=== PATIENT | male | born 1940 | race Caucasian/White ===

== ENCOUNTER 2016-06-27 06:35 | Inpatient (IN) | payer OTHER, MEDICARE ==
[~2016-06-27] VITALS: Ht 170.2 cm; Wt 78.7 kg
[2016-06-27] VITALS (10 sets, daily range): BP systolic 135–164; BP diastolic 63–80; PULSE 68–93; RESP 17–20; TEMP 97.7–98.7; O2SAT 95–100
[~2016-06-27 06:35] MED LIST: BACT800T5 PO; CENTTAB9 PO; CLOP75 PO; HYZA100T6 PO; LIPI40TA PO; MUPI2%T TOP; RANI150T PO; TOPR50TA PO; VITA-13 PO; Z.0.WALKERFRONT
[2016-06-27] MEDS ORDERED: RANI150T PO (06:58)
[2016-06-27] MEDS ORDERED: PLAV75TA29 PO (06:58)
[2016-06-27] MEDS ORDERED: METO50TA PO (06:58)
[2016-06-27] MEDS ORDERED: LIPI40TA PO (06:58)
[2016-06-27] MEDS ORDERED: APIX5TAB PO (06:58)
[2016-06-27] MEDS ORDERED: LOSA25TA PO (06:58)
--- NOTE | 2016-06-27 07:08 | PD ---
HPI Chief Complaint: Abdominal Pain Time Seen by Provider: 07:01 Travel History International Travel<30 days: No Contact w/Intl Traveler<30days: No Traveled to known affect area: No History of Present Illness HPI 75-year-old male complains of abdominal pain. Patient states that he has intermittent abdominal cramping for the past week. Patient states the pain across the mid abdomen. Patient denies any pain radiation. Patient denies nausea vomiting diarrhea. Patient denies dysuria or frequency. Patient denies any fever chills. Patient has history of CAD status post stent placement. Patient states that he has history of atrial flutter/atrial fibrillation. Patient has a list of medication and he is on both Plavix and Eliquis. 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 Patient is scheduled to have electrophysiologic study by Dr. Urban tomorrow. Patient was advised to stop Eliquis today. Patient has history hypertension and dyslipidemia. Patient denies history of diabetes. PFSH Past Medical History Hx Anticoagulant Therapy: Yes Heart Rhythm Problems: Yes Cancer: No Cardiac Catheterization: Yes (FEB 2007) Cardiovascular Problems: Yes High Cholesterol: Yes Coronary Artery Disease: Yes Diabetes: No Diminished Hearing: No Endocrine: No Genitourinary: No Hepatitis: No Hiatal Hernia: No Hypertension: Yes Immune Disorder: No Musculoskeletal: Yes (ARTHRITIS) Neurologic: No Psychiatric: No Respiratory: Yes (COPD) Immunizations Current: Yes Migraines: No Seizures: No Thyroid Disease: No Tetanus Vaccination: < 5 Years Influenza Vaccination: Yes Past Surgical History AICD: No Body Medical Devices: CARDIAC STENTS Joint Replacement: Yes (LEFT KNEE) Oral Surgery: Yes (DENTAL EXTRACT., T & A) Pacemaker: No Other Surgery: Yes Social History Alcohol Use: Yes (OCCAISIONAL BEER ONCE A WEEK) Tobacco Use: No Substance Use: No Allergies-Medications (Allergen,Severity, Reaction): Coded Allergies: No Known Allergies (Verified , 06/27/16) Reported Meds & Prescriptions Reported Meds & Active Scripts Active Reported Eliquis (Apixaban) 5 Mg Tab 5 Mg PO BID Ranitidine (Ranitidine HCl) 150 Mg Tab 150 Mg PO BID Metoprolol Tartrate 50 Mg Tab 50 Mg PO BID Losartan (Losartan Potassium) 25 Mg Tab 12.5 Mg PO DAILY Plavix (Clopidogrel Bisulfate) 75 Mg Tab 0.5 Tab PO DAILY Lipitor (Atorvastatin Calcium) 40 Mg Tab 40 Mg PO HS Review of Systems General / Constitutional: No: Fever Eyes: No: Visual changes HENT: No: Headaches Cardiovascular: No: Chest Pain or Discomfort Respiratory: No: Shortness of Breath Gastrointestinal: Positive: Abdominal Pain Genitourinary: No: Dysuria Musculoskeletal: No: Pain Skin: No Rash Neurologic: No: Weakness Psychiatric: No: Depression Endocrine: No: Polydipsia Hematologic/Lymphatic: No: Easy Bruising Physical Exam Narrative GENERAL: Well-nourished, well-developed patient. SKIN: Warm and dry. HEAD: Normocephalic. EYES: No scleral icterus. No injection or drainage. NECK: Supple, trachea midline. No JVD or lymphadenopathy. CARDIOVASCULAR: Regular rate and rhythm without murmurs, gallops, or rubs. RESPIRATORY: Breath sounds equal bilaterally. No accessory muscle use. GASTROINTESTINAL: Abdomen soft, nondistended. Patient has mild to moderate tenderness and palpation right upper quadrant of the abdomen. No rebound tenderness. No mass. MUSCULOSKELETAL: No cyanosis, or edema. BACK: Nontender without obvious deformity. No CVA tenderness. Neurologic exam normal. Data Data Last Documented VS Vital Signs Date Time Temp Pulse Resp B/P Pulse Ox O2 Delivery O2 Flow Rate FiO2 06/27/16 07:17 96 Room Air 06/27/16 06:47 18 06/27/16 06:44 98.7 83 161/80 Orders Complete Blood Count With Diff (06/27/16 07:01) Comprehensive Metabolic Panel (06/27/16 07:01) Lipase (06/27/16 07:01) Prothrombin Time / Inr (Pt) (06/27/16 07:01) Act Partial Throm Time (Ptt) (06/27/16 07:01) Urinalysis - C+S If Indicated (06/27/16 07:01) Ct Abd/Pel W Iv Contrast(Rout) (06/27/16 07:01) Iv Access Insert/Monitor (06/27/16 07:01) Ecg Monitoring (06/27/16 07:01) Oximetry (06/27/16 07:01) Pantoprazole Inj (Protonix Inj) (06/27/16 07:15) Electrocardiogram (06/27/16 07:01) Iohexol 350 Inj (Omnipaque 350 Inj) (06/27/16 08:31) Labs Laboratory Tests Test 06/27/16 06/27/16 07:15 08:45 White Blood Count 16.5 TH/MM3 Red Blood Count 5.17 MIL/MM3 Hemoglobin 15.3 GM/DL Hematocrit 45.4 % Mean Corpuscular Volume 87.8 FL Mean Corpuscular Hemoglobin 29.7 PG Mean Corpuscular Hemoglobin 33.8 % Concent Red Cell Distribution Width 13.2 % Platelet Count 275 TH/MM3 Mean Platelet Volume 7.8 FL Neutrophils (%) (Auto) 85.6 % Lymphocytes (%) (Auto) 7.4 % Monocytes (%) (Auto) 6.2 % Eosinophils (%) (Auto) 0.3 % Basophils (%) (Auto) 0.5 % Neutrophils # (Auto) 14.2 TH/MM3 Lymphocytes # (Auto) 1.2 TH/MM3 Monocytes # (Auto) 1.0 TH/MM3 Eosinophils # (Auto) 0.0 TH/MM3 Basophils # (Auto) 0.1 TH/MM3 CBC Comment DIFF FINAL Differential Comment Prothrombin Time 11.0 SEC Prothromb Time International 1.0 RATIO Ratio Activated Partial 27.2 SEC Thromboplast Time Sodium Level 142 MEQ/L Potassium Level 4.1 MEQ/L Chloride Level 104 MEQ/L Carbon Dioxide Level 29.4 MEQ/L Anion Gap 9 MEQ/L Blood Urea Nitrogen 19 MG/DL Creatinine 1.20 MG/DL Estimat Glomerular Filtration 59 ML/MIN Rate Random Glucose 152 MG/DL Calcium Level 9.7 MG/DL Total Bilirubin 1.2 MG/DL Aspartate Amino Transf 14 U/L (AST/SGOT) Alanine Aminotransferase 21 U/L (ALT/SGPT) Alkaline Phosphatase 82 U/L Total Protein 7.9 GM/DL Albumin 3.4 GM/DL Lipase 193 U/L Urine Collection Type CLEAN CATCH Urine Color YELLOW Urine Turbidity CLEAR Urine pH 6.0 Urine Specific [place] 1.019 Urine Protein NEG mg/dL Urine Glucose (UA) NEG mg/dL Urine Ketones NEG mg/dL Urine Occult Blood NEG Urine Nitrite NEG Urine Bilirubin NEG Urine Leukocyte Esterase NEG Urine Squamous Epithelial 0-5 /hpf Cells Microscopic Urinalysis Comment CULT NOT INDICATED Urine Collection Time 0845 [facility] Medical Decision Making Medical Screen Exam Complete: Yes Emergency Medical Condition: Yes Interpretation(s) Last Impressions Abdomen/Pelvis CT 06/27/16 0701 Signed Impressions: Service Date/Time: Monday, June 27, 2016 08:07 - CONCLUSION: 1. Hepatic steatosis with areas of focal fatty sparing. 2. Cholelithiasis. 3. Left-sided renal cyst. 4. Small right pleural effusion. Walter Jimenez MD 9:06 AM. CBC WBC 16.5. 85 neutrophil. BUN 19. Total bili 1.2. UA is negative. Differential Diagnosis Differential diagnosis including gastritis, PUD, pancreatitis, cholecystitis, colitis, UTI, pyelonephritis, nephrolithiasis. Narrative Course 75-year-old male with right upper quadrant abdominal pain and mid abdominal pain. Diagnosis Primary Impression: Acute cholecystitis Additional Impression: Cholelithiasis Qualified Code: K80.00 - Calculus of gallbladder with acute cholecystitis without obstruction Sree Kathleen MD Jun 27, 2016 07:08
[2016-06-27] MEDS ORDERED: PANTOPRAZOLE SODIUM 40 MG VIAL IVP ONE (07:15)
[2016-06-27 07:32] LABS: AUTOMATED NEUTROPHIL # 14.2 TH/MM3 (1.8-7.7); BASOPHIL # 0.1 TH/MM3 (0-0.2); BASOPHIL % 0.5 % (0.0-2.0); EOSINOPHIL % 0.3 % (0.0-4.0); HEMATOCRIT 45.4 % (39.0-51.0); LYMPH % 7.4 % (9.0-44.0); LYMPHOCYTE # 1.2 TH/MM3 (1.0-4.8); MEAN CELL VOLUME 87.8 FL (80.0-100.0); MEAN CORPUSCULAR HEMOGLOBIN 29.7 PG (27.0-34.0); MEAN CORPUSCULAR HGB CONC 33.8 % (32.0-36.0); MONO % 6.2 % (0.0-8.0); NEUT % 85.6 % (16.0-70.0); PLATELET COUNT 275 TH/MM3 (150-450); RED BLOOD COUNT 5.17 MIL/MM3 (4.50-5.90); RED CELL DISTRIBUTION WIDTH 13.2 % (11.6-17.2); WHITE BLOOD COUNT 16.5 TH/MM3 (4.0-11.0)
[2016-06-27 07:33] LABS: HEMO FLAGS DIFF FINAL
[2016-06-27 07:46] LABS: CHLORIDE 104 MEQ/L (98-107); POTASSIUM 4.1 MEQ/L (3.5-5.1); SODIUM (NA) 142 MEQ/L (136-145)
[2016-06-27 07:50] LABS: ANION GAP 9 MEQ/L (5-15); APTT (PATIENT) 27.2 SEC (24.3-30.1); BICARBONATE 29.4 MEQ/L (21.0-32.0); BLOOD UREA NITROGEN 19 MG/DL (7-18)
[2016-06-27 07:53] LABS: ALT (GPT) 21 U/L (12-78); AST (GOT) 14 U/L (15-37); GLOMERULAR FILTRATION RATE 59 ML/MIN (>89)
[2016-06-27 07:54] LABS: TOTAL BILIRUBIN ADULT 1.2 MG/DL (0.2-1.0)
[2016-06-27 07:56] LABS: ALKALINE PHOSPHATASE 82 U/L (45-117)
[2016-06-27] MEDS ORDERED: IOHEXOL 350 MG/ML 10 ML VIAL (for RAD DIAG) IV ONE (08:31)
--- NOTE | 2016-06-27 08:38 | RADHPO ---
EXAM DATE/TIME: 06/27/2016 08:07 [place] COMPARISON: No previous studies available for comparison. INDICATIONS : Right upper quadrant pain and cramping. IV CONTRAST: 96 cc Omnipaque 350 (iohexol) IV ORAL CONTRAST: No oral contrast ingested. RADIATION DOSE: 12.72 CTDIvol (mGy) MEDICAL HISTORY : Cardiovascular disease. Chronic obstructive pulmonary disease. Hypertension. SURGICAL HISTORY : None. ENCOUNTER: Initial ACUITY: 1 week PAIN SCALE: 5/10 LOCATION: Right upper quadrant TECHNIQUE: Volumetric scanning of the abdomen and pelvis was performed. Using automated exposure control and ad justment of the mA and/or kV according to patient size, radiation dose was kept as low as reasonably achievable to obtain optimal diagnostic quality images. FINDINGS: LOWER LUNGS: Right-sided bronchiectasis. Small right pleural effusion LIVER: Decreased attenuation without les ion. There is increased attenuation adjacent gallbladder. There is no dilation of the biliary tree. Multiple calcified gallstones. SPLEEN: Normal size without lesion. PANCREAS: Within normal limits. KIDNEYS: Normal in size and shape. There is no mass, stone or hydronephrosis. Small left-sided renal cyst. ADRENAL GLANDS: Within normal limits. VASCULAR: There is no aortic aneurysm. BOWEL/MESENTERY: The stomach, small bowel, and colon demonstrate no acute abnormality. There is no free intraperitone al air or fluid. ABDOMINAL WALL: Within normal limits. RETROPERITONEUM: There is no lymphadenopathy. BLADDER: No wall thickening or mass. REPRODUCTIVE: Within normal limits. INGUINAL: There is no lymphadenopathy or hernia. MUSCULOSKELETAL: Within normal limits for patient age. CONCLUSION: 1. Hepatic steatosis with areas of focal fatty sparing. 2. Cholelithiasis. 3. Left-sided renal cyst. 4. Small right pleural effusion. Walter Jimenez MD on June 27, 2016 at 8:34 Board Certified Radiologist. This report was verified electronically.
[2016-06-27 08:49] LABS: BLOOD, URINE NEG (NEG); GLUCOSE,URINE NEG (NEG); KETONE, URINE NEG (NEG); NITRITE,URINE NEG (NEG)
[2016-06-27 08:50] LABS: METHOD OF COLLECTION CLEAN CATCH; URINE COLOR YELLOW (YELLW/STRAW)
[2016-06-27 08:55] LABS: COMMENT (UR) CULT NOT INDICATED; CULTURE IF INDICATED CULT NOT INDICATED; SQUAMOUS EPITHELIAL CELL URINE 0-5 /hpf (0-5)
[2016-06-27] MEDS ORDERED: PANTOPRAZOLE SODIUM 40 MG VIAL IV PUSH ONE (09:30)
[2016-06-27] MEDS ORDERED: SODIUM CHLOR 0.9% 1000 ML INJ 1,000 ML IV SCH (09:30)
[2016-06-27] MEDS ORDERED: PIPERACIL-TAZO 3.375 GM PREMIX 50 ML IV ONE (09:30)
[2016-06-27] MEDS ORDERED: ACETAMINOPHEN 325 MG TAB PO PRN (09:45)
[2016-06-27] MEDS ORDERED: ONDANSETRON HCL 4 MG/2 ML VIAL IV PRN (09:45)
[2016-06-27] MEDS ORDERED: SODIUM CHLORIDE 0.9% FLUSH 5 ML FLUSH IVF PRN (09:45)
[2016-06-27] MEDS ORDERED: NALOXONE HCL 0.4 MG/ML AMP IV PRN (11:30)
[2016-06-27] MEDS ORDERED: SODIUM CHLORIDE 0.9% FLUSH 5 ML FLUSH FLUSH PRN (11:30)
[2016-06-27] MEDS ORDERED: ONDANSETRON HCL 4 MG/2 ML VIAL IVP PRN (11:30)
[2016-06-27] MEDS ORDERED: HYDROmorphone HCL 2 MG TAB PO PRN ×2 (11:30)
[2016-06-27] MEDS: SODIUM CHLOR 0.9% 1000 ML INJ 1,000 ML IV SCH ×2 (11:34→22:41)
[2016-06-27] MEDS ORDERED: PILL SPLITTER OTHER PRN (11:45)
--- NOTE | 2016-06-27 13:36 | HHI.HP ---
[facility] Service [place] [facility] Primary Care Physician Omar Thapa MD Admission Diagnosis acute cholecystitis. Cholelithiasis. Atrial flutter. Diagnoses: Chief Complaint: Abdominal pain Travel History International Travel<30 Days: No Contact w/Intl Traveler <30 Da: No Traveled to Known Affected Are: No History of Present Illness 75 years old male with history of peripheral vascular disease and stenting in his bilateral femoral arteries for which she is on Plavix, also history of atrial flutter/fibrillation for which he was supposed to have ablation with Dr. Pacheco tomorrow, patient is on elliquis. Patient presented to the ED complaining of abdominal pain around 6 and 7 out of 10, mainly in the right upper quadrant no nausea or vomiting, no sweating, no short of breath, no diarrhea or constipation. Patient isn't defined relation to food or other exacerbating or elevating factors, CT of the abdomen showed cholelithiasis with steatosis, surgery consulted from ED they recommended admission to medical service with consultation for cardiology for appearance, holding Plavix and elliquis. And nothing by mouth after midnight. General patient is poor historian, he is laying in bed now stated his pain is better with medication, denied any nausea vomiting diarrhea fever or chills Review of Systems All 10 systems reviewed and was positive for what is mentioned in history of present illness otherwise negative Past Family Social History Past Medical History PAD on articulation bilateral femoral stenting Atrial flutter History of cardiac catheter February 10 Hyperlipidemia Arthritis COPD Past Surgical History Bilateral femoral stenting Allergies: Coded Allergies: No Known Allergies (Verified , 06/27/16) Family History Heart disease in his mother and father, father had heart attack in early age 55 Social History Drinks alcohol very occasionally no other abuse of tobacco or illicit drug Physical Exam Vital Signs Vital Signs Date Time Temp Pulse Resp B/P Pulse Ox O2 Delivery O2 Flow Rate FiO2 06/27/16 11:22 73 18 148/75 99 Room Air 06/27/16 09:20 68 17 164/73 98 Room Air 06/27/16 07:17 96 Room Air 06/27/16 06:47 18 06/27/16 06:44 98.7 83 18 161/80 95 Physical Exam GENERAL: This is a well-nourished, well-developed patient, in no apparent distress. SKIN: No rashes, ecchymoses or lesions. Cool and dry. HEAD: Atraumatic. Normocephalic. No temporal or scalp tenderness. EYES: Pupils equal round and reactive. Extraocular motions intact. No scleral icterus. No injection or drainage. ENT: Nose without bleeding, purulent drainage or septal hematoma. Throat without erythema, tonsillar hypertrophy or exudate. Uvula midline. Airway patent. NECK: Trachea midline. No JVD or lymphadenopathy. Supple, nontender, no meningeal signs. CARDIOVASCULAR: Regular rate and rhythm without murmurs, gallops, or rubs. RESPIRATORY: Clear to auscultation. Breath sounds equal bilaterally. No wheezes , rales, or rhonchi. GASTROINTESTINAL: Abdomen soft, non-tender, nondistended. No hepato-splenomegaly , or palpable masses. No guarding. MUSCULOSKELETAL: Extremities without clubbing, cyanosis, or edema. No joint tenderness, effusion, or edema noted. No calf tenderness. Negative Homans sign bilaterally. NEUROLOGICAL: Awake and alert. Cranial nerves II through XII intact. Motor and sensory grossly within normal limits. Five out of 5 muscle strength in all muscle groups. Normal speech. Laboratory Laboratory Tests Test 06/27/16 06/27/16 07:15 08:45 White Blood Count 16.5 Red Blood Count 5.17 Hemoglobin 15.3 Hematocrit 45.4 Mean Corpuscular Volume 87.8 Mean Corpuscular Hemoglobin 29.7 Mean Corpuscular Hemoglobin 33.8 Concent Red Cell Distribution Width 13.2 Platelet Count 275 Mean Platelet Volume 7.8 Neutrophils (%) (Auto) 85.6 Lymphocytes (%) (Auto) 7.4 Monocytes (%) (Auto) 6.2 Eosinophils (%) (Auto) 0.3 Basophils (%) (Auto) 0.5 Neutrophils # (Auto) 14.2 Lymphocytes # (Auto) 1.2 Monocytes # (Auto) 1.0 Eosinophils # (Auto) 0.0 Basophils # (Auto) 0.1 CBC Comment DIFF FINAL Differential Comment Prothrombin Time 11.0 Prothromb Time International 1.0 Ratio Activated Partial 27.2 Thromboplast Time Sodium Level 142 Potassium Level 4.1 Chloride Level 104 Carbon Dioxide Level 29.4 Anion Gap 9 Blood Urea Nitrogen 19 Creatinine 1.20 Estimat Glomerular Filtration 59 Rate Random Glucose 152 Calcium Level 9.7 Total Bilirubin 1.2 Aspartate Amino Transf 14 (AST/SGOT) Alanine Aminotransferase 21 (ALT/SGPT) Alkaline Phosphatase 82 Total Protein 7.9 Albumin 3.4 Lipase 193 Urine Collection Type CLEAN CATCH Urine Color YELLOW Urine Turbidity CLEAR Urine pH 6.0 Urine Specific [place] 1.019 Urine Protein NEG Urine Glucose (UA) NEG Urine Ketones NEG Urine Occult Blood NEG Urine Nitrite NEG Urine Bilirubin NEG Urine Leukocyte Esterase NEG Urine Squamous Epithelial 0-5 Cells Microscopic Urinalysis Comment CULT NOT INDICATED Urine Collection Time 0845 Result Diagram: 06/27/1671406/27/16714 Imaging Last Impressions Abdomen/Pelvis CT 06/27/16700 Signed Impressions: Service Date/Time: Monday, June 27, 2016 08:07 - CONCLUSION: 1. Hepatic steatosis with areas of focal fatty sparing. 2. Cholelithiasis. 3. Left-sided renal cyst. 4. Small right pleural effusion. Walter Jimenez MD Assessment and Plan Assessment and Plan 75 years old male with history of PAD and atrial flutter on optical correlation came with Acute cholecystitis presented with abdominal pain CT abdomen showed cholelithiasis with steatosis Admitted to inpatient with element considering his history of a flutter Hold elliquis and Plavix GS consulted Dr. Pacheco consulted for clearance Continue heart rate control medication Lopressor Zosyn iv for antibiotic coverage Dilaudid for pain management History of PAD History of bilateral femoral stenting Will hold Plavix expecting surgery for cholelithiasis Consider resuming once okay with surgery History of atrial flutter On Lopressor and elliquis Hold elliquis Monitor heart rate Consulted Dr. Pacheco for clearance Hypertension poorly controlled Resume losartan with metoprolol Vasotec iv when necessary Monitor blood pressure Hyperlipidemia continue statin DVT prophylaxis if the resume elliquis or start heparin DVT prophylaxis tomorrow when okay with surgery Discussed Condition With ED physician Physician Certification 2 Midnight Certification Type: Admission for Inpatient Services Order for Inpatient Services The services are ordered in accordance with Medicare regulations or non- Medicare payer requirements, as applicable. In the case of services not specified as inpatient-only, they are appropriately provided as inpatient services in accordance with the 2-midnight benchmark. Estimated LOS (days): 2 days is the estimated time the patient will need to remain in the hospital, assuming treatment plan goals are met and no additional complications. Post-Hospital Plan: Not yet determined Nataliia Hernandez MD Jun 27, 2016 13:35
[2016-06-27] MEDS: PIPERACIL-TAZO 4.5 GM PREMIX 100 ML IV SCH ×2 (16:27→22:40)
[2016-06-27] MEDS: METOPROLOL TARTRATE 50 MG TAB PO SCH (19:55)
[2016-06-27] MEDS: SODIUM CHLORIDE 0.9% FLUSH 5 ML FLUSH FLUSH SCH (19:55)
[2016-06-27] MEDS: ATORVASTATIN 40 MG TAB PO SCH (19:55)
[2016-06-27] MEDS ORDERED: SODIUM CHLORIDE 0.9% FLUSH 5 ML FLUSH IVF SCH (21:00)
[2016-06-28] VITALS (9 sets, daily range): BP systolic 143–179; BP diastolic 75–105; PULSE 107–128; RESP 17–22; TEMP 96.9–99.3; O2SAT 91–99
[2016-06-28] MEDS ORDERED: METOPROLOL TARTRATE 25 MG TAB PO ONE (05:15)
[2016-06-28 05:16] LABS: AUTOMATED NEUTROPHIL # 9.4 TH/MM3 (1.8-7.7); BASOPHIL # 0.1 TH/MM3 (0-0.2); BASOPHIL % 0.5 % (0.0-2.0); EOSINOPHIL # 0.3 TH/MM3 (0-0.4); EOSINOPHIL % 2.2 % (0.0-4.0); HEMATOCRIT 44.2 % (39.0-51.0); HEMO FLAGS DIFF FINAL; LYMPHOCYTE # 2.5 TH/MM3 (1.0-4.8); MEAN CELL VOLUME 86.8 FL (80.0-100.0); MEAN CORPUSCULAR HEMOGLOBIN 30.6 PG (27.0-34.0); MEAN CORPUSCULAR HGB CONC 35.2 % (32.0-36.0); NEUT % 67.3 % (16.0-70.0); PLATELET COUNT 252 TH/MM3 (150-450); RED CELL DISTRIBUTION WIDTH 14.5 % (11.6-17.2); WHITE BLOOD COUNT 13.9 TH/MM3 (4.0-11.0)
[2016-06-28] MEDS: PIPERACIL-TAZO 4.5 GM PREMIX 100 ML IV SCH ×4 (05:18→20:25)
[2016-06-28] MEDS: SODIUM CHLOR 0.9% 1000 ML INJ 1,000 ML IV SCH (05:18)
[2016-06-28 05:38] LABS: BICARBONATE 24.8 MEQ/L (21.0-32.0); POTASSIUM 3.6 MEQ/L (3.5-5.1)
[2016-06-28 05:40] LABS: INDIRECT BILIRUBIN 1.9 MG/DL (0.0-0.8); TOTAL BILIRUBIN ADULT 2.3 MG/DL (0.2-1.0)
[2016-06-28] MEDS ORDERED: DILTIAZEM HCL 30 MG TAB PO ONE (06:30)
[2016-06-28] MEDS: METOPROLOL TARTRATE 50 MG TAB PO SCH ×2 (07:36→20:25)
[2016-06-28] MEDS: LOSARTAN 25 MG TAB PO SCH (07:37)
[2016-06-28] MEDS: SODIUM CHLORIDE 0.9% FLUSH 5 ML FLUSH FLUSH SCH ×2 (07:38→20:25)
[2016-06-28] MEDS: HEPARIN SODIUM - SQ 10,000 UNITS/ML VIAL SQ SCH ×3 (07:38→23:49)
--- NOTE | 2016-06-28 10:41 | HHI.PR ---
Subjective Remarks The patient was resting comfortably in bed. He was complaining of mid abdominal pain. He said he ate yesterday but not today. He was wondering if he was him go for the ablation of the gallbladder surgery. Discussed with nursing and cardiology. Objective Vitals Vital Signs Date Time Temp Pulse Resp B/P Pulse Ox O2 Delivery O2 Flow Rate FiO2 06/28/16 08:00 96.9 128 18 145/97 97 06/28/16 06:09 97.6 128 20 168/94 95 06/28/16 04:05 98.1 124 18 179/105 91 06/28/16 00:24 97.5 108 17 148/93 95 06/27/16 20:12 88 06/27/16 20:01 21 06/27/16 18:45 97.7 93 20 164/70 99 06/27/16 17:47 82 18 140/78 98 Room Air 06/27/16 16:29 68 18 143/64 100 Room Air 06/27/16 13:52 72 18 135/63 97 Room Air 06/27/16 13:00 97 21 06/27/16 11:22 73 18 148/75 99 Room Air I/O 06/27/16 06/27/16 06/27/16 06/28/16 06/28/16 06/28/16 07:00 15:00 23:00 07:00 15:00 23:00 Intake Total 120 ml 703 ml Output Total 200 ml 600 ml 500 ml Balance -80 ml 103 ml -500 ml Intake Oral 120 ml 500 ml IV Total 203 ml Output Urine Total 200 ml 600 ml 500 ml # Bowel Movements 0 1 Result Diagram: 06/28/16 0432 06/28/16 0432 Imaging Last Impressions Abdomen/Pelvis CT 06/27/16 0701 Signed Impressions: Service Date/Time: Monday, June 27, 2016 08:07 - CONCLUSION: 1. Hepatic steatosis with areas of focal fatty sparing. 2. Cholelithiasis. 3. Left-sided renal cyst. 4. Small right pleural effusion. Walter Jimenez MD Objective Remarks GENERAL: This is a well-nourished, well-developed patient, in no apparent distress. SKIN: No rashes, ecchymoses or lesions. Cool and dry. HEAD: Atraumatic. Normocephalic. No temporal or scalp tenderness. EYES: Pupils equal round and reactive. Extraocular motions intact. No scleral icterus. No injection or drainage. ENT: Nose without bleeding, purulent drainage or septal hematoma. Throat without erythema, tonsillar hypertrophy or exudate. Uvula midline. Airway patent. NECK: Trachea midline. No JVD or lymphadenopathy. Supple, nontender, no meningeal signs. CARDIOVASCULAR: Regular rate and rhythm without murmurs, gallops, or rubs. RESPIRATORY: Clear to auscultation. Breath sounds equal bilaterally. No wheezes , rales, or rhonchi. GASTROINTESTINAL: Abdomen soft, non-tender, nondistended. No hepato-splenomegaly , or palpable masses. No guarding. MUSCULOSKELETAL: Extremities without clubbing, cyanosis, or edema. No joint tenderness, effusion, or edema noted. No calf tenderness. Negative Homans sign bilaterally. NEUROLOGICAL: Awake and alert. Cranial nerves II through XII intact. Motor and sensory grossly within normal limits. Five out of 5 muscle strength in all muscle groups. Normal speech. Medications and IVs Current Medications Medications (Trade) Dose Ordered Sig/Trisha Route Start Time Stop Time Status Last Admin Acetaminophen 650 mg 650 mg Q4H PRN PO 06/27/16 09:45 (NS 1000 ml Inj) 1,000 ml @ 100 mls/hr Q10H IV 06/27/16 11:26 Hold 06/28/16 05:18 (NS Flush) 2 ml UNSCH PRN FLUSH 06/27/16 11:30 (NS Flush) 2 ml BID FLUSH 06/27/16 21:00 06/28/16 07:38 (Zofran Inj) 4 mg Q6H PRN IVP 06/27/16 11:30 (Heparin Inj) 5,000 units Q8H SQ 06/28/16 08:30 (Dilaudid) 1 mg Q4H PRN PO 06/27/16 11:30 06/28/16 11:29 (Dilaudid) 2 mg Q4H PRN PO 06/27/16 11:30 06/28/16 11:29 (Narcan Inj) 0.4 mg UNSCH PRN IV 06/27/16 11:30 (Cozaar) 12.5 mg DAILY PO 06/28/16 09:00 06/28/16 07:37 (Lopressor) 50 mg BID PO 06/27/16 21:00 06/28/16 07:36 (Lipitor) 40 mg HS PO 06/27/16 21:00 06/27/16 19:55 Miscellaneous 1 ea 1 ea UNSCH PRN OTHER 06/27/16 11:45 (Zosyn 4.5 Gm Premix) 100 ml @ 200 mls/hr Q6H IV 06/27/16 16:00 06/28/16 05:18 A/P Assessment and Plan Acute cholecystitis The pt presented with abdominal pain. CT abdomen showed cholelithiasis with steatosis. - Hold Eliquis and Plavix. Eliquis has been held since Tuesday per pt. - GS consult pending. - cardiology consult for clearance. - Continue heart rate control. - Zosyn iv for antibiotic coverage - pain management with a bowel regimen. Atrial flutter with RVR Supposed to have ablation, which now may be postponed for gallbladder surgery. - follow up with cardiology. - On Lopressor. - Hold Eliquis. - telemetry. PAD History of bilateral femoral stenting - Will hold Plavix expecting surgery for cholelithiasis. - Consider resuming once okay with surgery. Hypertension Poorly controlled. - Resumed losartan and metoprolol. - Vasotec iv when necessary. DVT prophylaxis: Per surgery. Discharge Planning Awaiting further evaluation. Elver Johnston DO Jun 28, 2016 10:41
--- NOTE | 2016-06-28 14:26 | EKG ---
Date Performed: 06/28/2016 Time Performed: 05:01:23 PTAGE: 75 years EKG: ATRIAL FLUTTER/TACHYCARDIA WITH RAPID VENTRICULAR RESPONSE MARKED LEFT AXIS DEVIATION ANTER OSEPTAL MYOCARDIAL INFARCTION , OF INDETERMINATE AGE MARKED ST DEPRESSION, CONSIDER SUBENDOCARDIAL I NJURY ABNORMAL ECG NO PREVIOUS TRACING DOCTOR: Aman Olson Interpretating Date/Time 06/28/2016 14:25:11
--- NOTE | 2016-06-28 15:08 | EKG ---
Date Performed: 06/27/2016 Time Performed: 07:07:18 PTAGE: 75 years EKG: Atrial flutter with 4:1 A-V block Left axis deviation Incomplete LBBB Possible anteroseptal infarct - age undetermined Left ventricular hypertrophy Inferior/lateral ST-T changes may be due to hypertrophy and/or ischemia Abnormal ECG PREVIOUS TRACING : 08/30/2011 07.19 Compared to the previous tracing, atrial flutter is new DOCTOR: Aman Olson Interpretating Date/Time 06/28/2016 15:08:32
--- NOTE | 2016-06-28 15:55 | PD.CONS ---
cc: Bryce Rodriguez MD [facility] Service CONSULTATION NOTE FOR SURGICAL ATTENDING, DR. BRYCE RODRIGUEZ General Surgery Consult Requested By Dr. Kathleen Reason for Consult Abdominal pain Primary Care Physician Omar Thapa MD History of Present Illness This is a 75-year-old male with a history of peripheral vascular disease and stenting in his bilateral femoral arteries. He is on Plavix with a history of atrial fibrillation. The patient was was to be seen by Dr. Pacheco to have a panned ablation done. The patient's Elliquis was has been put on hold for this and last taken Tuesday. The patient comes in the emergency department complaining of abdominal pain mainly on the right upper quadrant with no nausea or vomiting. CT of the abdomen/pelvis was obtained and showed cholelithiasis. A Gen. surgery consultation was requested. Review of Systems Constitutional: DENIES: Chills, Dizziness, Change in appetite Endocrine: DENIES: Polydipsia, Polyuria, Polyphagia Eyes: DENIES: Eye inflammation, Eye pain Ears, nose, mouth, throat: DENIES: Vertigo, Nasal discharge Respiratory: DENIES: Snoring, Wheezing, Hemoptysis Cardiovascular: DENIES: Chest pain, Palpitations Gastrointestinal: COMPLAINS OF: Abdominal pain, DENIES: Constipation, Diarrhea , Nausea, Vomiting Genitourinary: DENIES: Urinary frequency, Urinary incontinence Musculoskeletal: DENIES: Joint pain Integumentary: DENIES: Abnormal pigmentation Hematologic/lymphatic: DENIES: Bruising Immunologic/allergic: DENIES: Eczema Neurologic: DENIES: Abnormal gait, Headache Psychiatric: DENIES: Confusion, Mood changes, Depression Past Family Social History Past Medical History PAD on articulation bilateral femoral stenting Atrial flutter Hyperlipidemia Arthritis COPD Past Surgical History Bilateral femoral stenting Reported Medications See chart Allergies: Coded Allergies: No Known Allergies (Verified , 06/27/16) Active Ordered Medications Current Medications Medications (Trade) Dose Ordered Sig/Trisha Route Start Time Stop Time Status Last Admin Acetaminophen 650 mg 650 mg Q4H PRN PO 06/27/16 09:45 (NS 1000 ml Inj) 1,000 ml @ 100 mls/hr Q10H IV 06/27/16 11:26 Hold 06/28/16 05:18 (NS Flush) 2 ml UNSCH PRN FLUSH 06/27/16 11:30 (NS Flush) 2 ml BID FLUSH 06/27/16 21:00 06/28/16 07:38 (Zofran Inj) 4 mg Q6H PRN IVP 06/27/16 11:30 (Heparin Inj) 5,000 units Q8H SQ 06/28/16 08:30 06/30/16 02:00 (Narcan Inj) 0.4 mg UNSCH PRN IV 06/27/16 11:30 (Cozaar) 12.5 mg DAILY PO 06/28/16 09:00 06/28/16 07:37 (Lopressor) 50 mg BID PO 06/27/16 21:00 06/28/16 07:36 (Lipitor) 40 mg HS PO 06/27/16 21:00 06/27/16 19:55 Miscellaneous 1 ea 1 ea UNSCH PRN OTHER 06/27/16 11:45 (Zosyn 4.5 Gm Premix) 100 ml @ 200 mls/hr Q6H IV 06/27/16 16:00 06/28/16 11:20 (Roxicodone) 5 mg Q4H PRN PO 06/28/16 11:00 (Roxicodone) 10 mg Q4H PRN PO 06/28/16 11:00 (Colace) 100 mg BID PO 06/28/16 21:00 Family History Noncontributory Social History Denies tobacco use Occasionally drinks alcohol not daily Denies illicit drug use Physical Exam Vital Signs Vital Signs Date Time Temp Pulse Resp B/P Pulse Ox O2 Delivery O2 Flow Rate FiO2 06/28/16 12:00 97.4 115 18 146/94 96 06/28/16 11:16 99 Nasal Cannula 2.00 06/28/16 08:00 96.9 128 18 145/97 97 06/28/16 06:09 97.6 128 20 168/94 95 06/28/16 04:05 98.1 124 18 179/105 91 06/28/16 00:24 97.5 108 17 148/93 95 06/27/16 20:12 88 06/27/16 20:01 21 06/27/16 18:45 97.7 93 20 164/70 99 06/27/16 17:47 82 18 140/78 98 Room Air 06/27/16 16:29 68 18 143/64 100 Room Air Physical Exam GENERAL: Resting in bed in no acute distress SKIN: Warm and dry. HEAD: Atraumatic. Normocephalic. EYES: Pupils equal and round. No scleral icterus. No injection or drainage. ENT: No nasal bleeding or discharge. Mucous membranes pink and moist. NECK: Trachea midline. CARDIOVASCULAR: Regular rate and rhythm. RESPIRATORY: No accessory muscle use. Clear to auscultation. Breath sounds equal bilaterally. GASTROINTESTINAL: Abdomen soft, tender with palpation in right upper quadrant. MUSCULOSKELETAL: Extremities without clubbing, cyanosis, or edema. No obvious deformities. NEUROLOGICAL: Awake and alert. No obvious cranial nerve deficits. Motor grossly within normal limits. Five out of 5 muscle strength in the arms and legs. Normal speech. PSYCHIATRIC: Appropriate mood and affect; insight and judgment normal. Laboratory Laboratory Tests Test 06/28/16 04:32 White Blood Count 13.9 Red Blood Count 5.10 Hemoglobin 15.6 Hematocrit 44.2 Mean Corpuscular Volume 86.8 Mean Corpuscular Hemoglobin 30.6 Mean Corpuscular Hemoglobin 35.2 Concent Red Cell Distribution Width 14.5 Platelet Count 252 Mean Platelet Volume 8.0 Neutrophils (%) (Auto) 67.3 Lymphocytes (%) (Auto) 18.0 Monocytes (%) (Auto) 12.0 Eosinophils (%) (Auto) 2.2 Basophils (%) (Auto) 0.5 Neutrophils # (Auto) 9.4 Lymphocytes # (Auto) 2.5 Monocytes # (Auto) 1.7 Eosinophils # (Auto) 0.3 Basophils # (Auto) 0.1 CBC Comment DIFF FINAL Differential Comment Sodium Level 141 Potassium Level 3.6 Chloride Level 105 Carbon Dioxide Level 24.8 Anion Gap 11 Blood Urea Nitrogen 15 Creatinine 1.14 Estimat Glomerular Filtration 62 Rate Random Glucose 126 Calcium Level 9.2 Total Bilirubin 2.3 Direct Bilirubin 0.4 Indirect Bilirubin 1.9 Aspartate Amino Transf 12 (AST/SGOT) Alanine Aminotransferase 17 (ALT/SGPT) Alkaline Phosphatase 75 Total Protein 7.4 Albumin 3.1 Lipase 181 Result Diagram: 06/28/16 0432 06/28/16 0432 Imaging Last Impressions Cholangiopancreatography MRI 06/29/16 0000 Signed Impressions: Service Date/Time: Wednesday, June 29, 2016 16:14 - CONCLUSION: Cholelithiasis and fatty liver. Brinda Murphy MD Abdomen/Pelvis CT 06/27/16 0701 Signed Impressions: Service Date/Time: Monday, June 27, 2016 08:07 - CONCLUSION: 1. Hepatic steatosis with areas of focal fatty sparing. 2. Cholelithiasis. 3. Left-sided renal cyst. 4. Small right pleural effusion. Walter Jimenez MD Assessment and Plan Problem List: (1) Acute cholecystitis (2) Cholelithiasis (3) Status post total knee replacement, right (4) Hx of heart artery stent Assessment and Plan This is a 75-year-old male with right upper quadrant abdominal pain and CT of the abdomen/pelvis that shows cholelithiasis Patient was evaluated by cardiology and cleared for surgery Pain for surgery on Tuesday afternoon Heart healthy diet; nothing by mouth after midnight on Tuesday Continue to hold Elliquis Medical management of tachycardia and hypertension Attending Statement NOTE FOR SURGICAL ATTENDING, DR. BRYCE RODRIGUEZ Patient examined Patient has right upper quadrant pain I discussed with Dr. Valencia the marine fitter about proceeding with cholecystectomy at this hospitalization I agree with above assessment and plan. The exam, history, and the medical decision-making described in the above note were completed with the assistance of the mid-level provider. I reviewed and agree with the findings presented. I attest that I had a [id number] encounter with the patient on the same day, and personally performed and documented my assessment and findings in the medical record. The following services were provided during this hospital visit: Chart data review, vital sign assessments/reviewing monitor data Review of consultations notes if present. Medication orders/review and/or management Ordering and/or reviewing lab tests Ordering and/or interpreting/reviewing x-rays and/or diagnostic studies Care of the patient and discussion of the patient with the care team Documentation time To help prompt me to consider important information that might be impacting today's encounter and assessment, information from prior notes written by myself or my colleagues may have been "brought forward/copy and pasted" into today's note. Problem Qualifiers (1) Cholelithiasis: Qualified Code: K80.00 - Calculus of gallbladder with acute cholecystitis without obstruction Margy Menchaca Jun 28, 2016 15:55 Bryce Rodriguez MD Jun 30, 2016 14:31
[2016-06-28] MEDS: DOCUSATE SODIUM 100 MG CAP PO SCH (20:25)
[2016-06-28] MEDS: ATORVASTATIN 40 MG TAB PO SCH (20:25)
[2016-06-29] VITALS (13 sets, daily range): BP systolic 118–151; BP diastolic 63–90; PULSE 68–131; RESP 16–18; TEMP 95.6–99.4; O2SAT 96–100
[2016-06-29] MEDS: PIPERACIL-TAZO 4.5 GM PREMIX 100 ML IV SCH ×4 (03:56→22:21)
[2016-06-29 05:16] LABS: HEMATOCRIT 41.4 % (39.0-51.0); MEAN CELL VOLUME 87.7 FL (80.0-100.0); MEAN CORPUSCULAR HEMOGLOBIN 29.6 PG (27.0-34.0); MEAN CORPUSCULAR HGB CONC 33.7 % (32.0-36.0); PLATELET COUNT 232 TH/MM3 (150-450); RED BLOOD COUNT 4.73 MIL/MM3 (4.50-5.90); RED CELL DISTRIBUTION WIDTH 14.1 % (11.6-17.2); REVIEW FLAG FINAL; WHITE BLOOD COUNT 15.1 TH/MM3 (4.0-11.0)
[2016-06-29 05:51] LABS: BICARBONATE 30.5 MEQ/L (21.0-32.0); INDIRECT BILIRUBIN 2.7 MG/DL (0.0-0.8); MAGNESIUM 2.2 MG/DL (1.5-2.5); TOTAL BILIRUBIN ADULT 3.8 MG/DL (0.2-1.0)
--- NOTE | 2016-06-29 09:14 | HHI.PR ---
Subjective Subjective Notes DAILY PROGRESS NOTE FOR SURGICAL ATTENDING, DR. BRYCE RODRIGUEZ Up to chair Waiting for breakfast Objective Vitals/I&O Vital Signs Date Time Temp Pulse Resp B/P Pulse Ox O2 Delivery O2 Flow Rate FiO2 06/29/16 08:00 99.2 68 18 136/88 98 06/28/16 21:40 Nasal Cannula 2.00 06/27/16 20:01 21 Labs Laboratory Tests Test 06/29/16 04:16 White Blood Count 15.1 Red Blood Count 4.73 Hemoglobin 14.0 Hematocrit 41.4 Mean Corpuscular Volume 87.7 Mean Corpuscular Hemoglobin 29.6 Mean Corpuscular Hemoglobin 33.7 Concent Red Cell Distribution Width 14.1 Platelet Count 232 Mean Platelet Volume 8.0 Sodium Level 142 Potassium Level 4.0 Chloride Level 103 Carbon Dioxide Level 30.5 Anion Gap 9 Blood Urea Nitrogen 17 Creatinine 1.51 Estimat Glomerular Filtration 45 Rate Random Glucose 114 Calcium Level 8.8 Magnesium Level 2.2 Total Bilirubin 3.8 Direct Bilirubin 1.1 Indirect Bilirubin 2.7 Aspartate Amino Transf 151 (AST/SGOT) Alanine Aminotransferase 190 (ALT/SGPT) Alkaline Phosphatase 159 Total Protein 6.9 Albumin 2.8 Radiology Last Impressions Cholangiopancreatography MRI 06/29/16 0000 Signed Impressions: Service Date/Time: Wednesday, June 29, 2016 16:14 - CONCLUSION: Cholelithiasis and fatty liver. Brinda Murphy MD Abdomen/Pelvis CT 06/27/16700 Signed Impressions: Service Date/Time: Monday, June 27, 2016 08:07 - CONCLUSION: 1. Hepatic steatosis with areas of focal fatty sparing. 2. Cholelithiasis. 3. Left-sided renal cyst. 4. Small right pleural effusion. Walter Jimenez MD Last 48 hours Impressions Abdomen/Pelvis CT 06/27/16700 Signed Impressions: Service Date/Time: Monday, June 27, 2016 08:07 - CONCLUSION: 1. Hepatic steatosis with areas of focal fatty sparing. 2. Cholelithiasis. 3. Left-sided renal cyst. 4. Small right pleural effusion. Walter Jimenez MD Cardiovascular: Regular Lungs: Clear Abdomen: Other (mild tenderness in RUQ with palpation; otherwise soft ) Extremities: No edema A/P Problem List: (1) Cellulitis (2) Acute cholecystitis (3) Cholelithiasis (4) Hx of heart artery stent (5) Status post total knee replacement, right Assessment and Plan 75 year old male with acute cholelithiasis with multiple medical problems -Heart healthy diet; NPO after MN -Continue to hold Eliquis -Clement johnathon planned with Dr. Rodriguez at 1329 -Obtain consents Attending Statement NOTE FOR SURGICAL ATTENDING, DR. BRYCE RODRIGUEZ I agree with above assessment and plan. The following services were provided during this hospital visit: Chart data review, vital sign assessments/reviewing monitor data Review of consultations notes if present. Medication orders/review and/or management Ordering and/or reviewing lab tests Ordering and/or interpreting/reviewing x-rays and/or diagnostic studies Care of the patient and discussion of the patient with the care team Documentation time To help prompt me to consider important information that might be impacting today's encounter and assessment, information from prior notes written by myself or my colleagues may have been "brought forward/copy and pasted" into today's note. Problem Qualifiers (1) Cholelithiasis: Qualified Code: K80.00 - Calculus of gallbladder with acute cholecystitis without obstruction Margy Menchaca Jun 29, 2016 09:14 Bryce Rodriguez MD Jun 30, 2016 14:37
[2016-06-29] MEDS: LOSARTAN 25 MG TAB PO SCH (09:25)
[2016-06-29] MEDS: DOCUSATE SODIUM 100 MG CAP PO SCH ×2 (09:25→21:00)
[2016-06-29] MEDS: METOPROLOL TARTRATE 50 MG TAB PO SCH ×2 (09:25→21:26)
[2016-06-29] MEDS: HEPARIN SODIUM - SQ 10,000 UNITS/ML VIAL SQ SCH (09:25)
[2016-06-29] MEDS: SODIUM CHLORIDE 0.9% FLUSH 5 ML FLUSH FLUSH SCH ×2 (09:25→21:26)
[2016-06-29] MEDS ORDERED: METOPROLOL TARTRATE 50 MG TAB PO ONE (11:30)
[2016-06-29] MEDS: SODIUM CHLOR 0.9% 1000 ML INJ 1,000 ML IV SCH (11:46)
--- NOTE | 2016-06-29 14:54 | HHI.PR ---
Subjective Remarks Patient denies any abdominal pain today. No nausea or vomiting. Heart rate this morning was in the 130s sustained around 8 AM to 11 AM. He was given an additional 50 mg of by mouth metoprolol and heart rate is now 106. He denies chest pain shortness of breath or palpitations. Objective Vitals Vital Signs Date Time Temp Pulse Resp B/P Pulse Ox O2 Delivery O2 Flow Rate FiO2 06/29/16 12:00 96.7 129 17 118/68 98 06/29/16 09:18 97 21 06/29/16 08:00 99.2 68 18 136/88 98 06/29/16 06:00 97.9 87 18 121/68 97 06/29/16 00:00 98.7 92 18 127/71 97 06/28/16 21:40 Nasal Cannula 2.00 06/28/16 20:00 99.3 107 18 143/75 97 06/28/16 16:00 98.7 108 19 160/90 95 I/O 06/28/16 06/28/16 06/28/16 06/29/16 06/29/16 06/29/16 07:00 15:00 23:00 07:00 15:00 23:00 Intake Total 0 ml 444 ml 330 ml Output Total 500 ml 500 ml 500 ml 400 ml Balance -500 ml -500 ml -56 ml -70 ml Intake Oral 0 ml 240 ml 240 ml IV Total 204 ml 90 ml Output Urine Total 500 ml 500 ml 500 ml 400 ml # Bowel Movements 1 0 Result Diagram: 06/29/16 0416 06/29/16 0416 Objective Remarks GENERAL: Well-nourished, well-developed pleasant male patient. SKIN: Warm and dry. HEAD: Normocephalic. EYES: No scleral icterus. No injection or drainage. NECK: Supple, trachea midline. No JVD or lymphadenopathy. CARDIOVASCULAR: Irregularly irregular rate and rhythm without murmurs, gallops, or rubs. RESPIRATORY: Breath sounds equal bilaterally. No accessory muscle use. GASTROINTESTINAL: Abdomen soft, non-tender, nondistended. EXTREMITIES: No cyanosis, or edema. NEUROLOGICAL: Awake, alert, and oriented x 3. Non-focal. A/P Assessment and Plan -Acute cholecystitis. Now with LFT and t-bili elevation. Discussed with Kirstin Menchaca of general surgery team, playing for MRCP today. If that shows no common bile duct stone the plan is to proceed with surgery tomorrow, however if common bile duct stone is present will get GI to see the patient for ERCP. continue Zosyn IV. -Atrial fibrillation with rapid ventricular rate - control is improved after increasing metoprolol to 3 times a day dosing. Will move him to [address] [place] [id number] in case he requires IV Cardizem. Blood pressure is stable and heart rate is better improved now. Dr. Urban of cardiology is planning an ablation after surgery. Nelsy has been on hold since TuesdayJune 25 (originally ablation was scheduled for June 28). I will start him on heparin drip for bridging. -Peripheral arterial disease. History of bilateral femoral stenting. Plavix on hold for surgery. -Hypertension. Currently controlled. I will continue metoprolol but hold Cozaar as he has mild acute kidney injury. -Mild acute kidney injury creatinine increased to 1.5 from 1 yesterday. Will start normal saline IV fluids at a rate of 75 mL per hour. Repeat BMP in the morning. -DVT px - SCDs, heparin gtt. Update 18:55 - HR again sustained in 120s, will start cardizem gtt. Katiana Neff MD Jun 29, 2016 14:54
[2016-06-29 16:02] LABS: HEMATOCRIT 42.5 % (39.0-51.0); MEAN CELL VOLUME 88.5 FL (80.0-100.0); MEAN CORPUSCULAR HEMOGLOBIN 30.5 PG (27.0-34.0); MEAN CORPUSCULAR HGB CONC 34.5 % (32.0-36.0); PLATELET COUNT 265 TH/MM3 (150-450); RED CELL DISTRIBUTION WIDTH 14.6 % (11.6-17.2); REVIEW FLAG FINAL; WHITE BLOOD COUNT 15.7 TH/MM3 (4.0-11.0)
[2016-06-29 16:20] LABS: APTT (PATIENT) 27.5 SEC (24.3-30.1); PROTHROMBIN TIME - PATIENT 11.6 SEC (9.8-11.6)
[2016-06-29] MEDS: HEPARIN-D5W INJ 250 ML IV SCH (18:09)
--- NOTE | 2016-06-29 18:16 | RADRPT ---
EXAM DATE/TIME: 06/29/2016 16:14 [facility] COMPARISON: CT ABDOMEN & PELVIS W CONTRAST, June 27, 2016, 8:07. INDICATIONS : Obstruction. Increased LFT's. MEDICAL HISTORY : Chronic obstructive pulmonary disease. Peripheral vascular disease. SURGICAL HISTORY : Bilateral femoral stenting. ENCOUNTER: Initial ACUITY: 2 day PAIN SCORE: 3/10 LOCATION: abdomen TECHNIQUE: Multiplanar, multisequence magnetic resonance imaging of the abdomen was performed. High-resolution 3D dataset was utilized to reconstruct maximum-intensity projection (MIP) images. FINDINGS: Common bile duct measures 4 mm without any filling defects. The gallbladder demonstrates multipl e stones without gallbladder wall thickening, or pericholecystic fluid. The liver is fatty and left r enal cyst is present measuring 2.2 cm in size. CONCLUSION: Cholelithiasis and fatty liver. Brinda Murphy MD on June 29, 2016 at 18:11 Board Certified Radiologist. This report was verified electronically.
[2016-06-29] MEDS ORDERED: DILTIAZEM INJ 125 MG in SODIUM CHLORIDE 0.9% INJ 100 ML IV SCH (19:15)
[2016-06-29] MEDS: ATORVASTATIN 40 MG TAB PO SCH (21:26)
[2016-06-30] VITALS (7 sets, daily range): BP systolic 130–150; BP diastolic 67–76; PULSE 65–108; RESP 12–18; TEMP 97.4–99; O2SAT 97–99
[2016-06-30 01:08] LABS: APTT (PATIENT) 58.2 SEC (24.3-30.1)
[2016-06-30] MEDS: SODIUM CHLOR 0.9% 1000 ML INJ 1,000 ML IV SCH ×2 (01:43→15:03)
[2016-06-30] MEDS: PIPERACIL-TAZO 4.5 GM PREMIX 100 ML IV SCH ×4 (03:48→20:55)
[2016-06-30 06:58] LABS: APTT (PATIENT) 30.6 SEC (24.3-30.1)
[2016-06-30 07:17] LABS: ALT (GPT) 105 U/L (12-78); ANION GAP 9 MEQ/L (5-15); AST (GOT) 48 U/L (15-37); BICARBONATE 24.5 MEQ/L (21.0-32.0); BLOOD UREA NITROGEN 15 MG/DL (7-18); CHLORIDE 109 MEQ/L (98-107); GLOMERULAR FILTRATION RATE 62 ML/MIN (>89); POTASSIUM 3.7 MEQ/L (3.5-5.1); SODIUM (NA) 142 MEQ/L (136-145)
[2016-06-30 07:18] LABS: ALKALINE PHOSPHATASE 121 U/L (45-117); TOTAL BILIRUBIN ADULT 2.5 MG/DL (0.2-1.0)
[2016-06-30] MEDS: DOCUSATE SODIUM 100 MG CAP PO SCH ×2 (09:00→20:55)
[2016-06-30] MEDS: SODIUM CHLORIDE 0.9% FLUSH 5 ML FLUSH FLUSH SCH (09:00)
[2016-06-30] MEDS: METOPROLOL TARTRATE 50 MG TAB PO SCH ×2 (09:14→20:55)
[2016-06-30] MEDS ORDERED: PROPOFOL 200 MG/20 ML AMP IV ONE (12:00)
[2016-06-30] MEDS ORDERED: SUGAMMADEX SODIUM 200 MG/2 ML VIAL IV PUSH ONE ×2 (12:00)
[2016-06-30] MEDS ORDERED: EPINEPHrine HCL (1:10,000) 1 MG/10 ML SYRINGE IV ONE (12:00)
[2016-06-30] MEDS ORDERED: fentaNYL CITRATE 250 MCG/5 ML AMP IV ONE (12:00)
[2016-06-30] MEDS ORDERED: ONDANSETRON HCL 4 MG/2 ML VIAL IV PUSH ONE (12:00)
[2016-06-30] MEDS ORDERED: DILTIAZEM HCL 50 MG/10 ML VIAL IV ONE (12:00)
[2016-06-30] MEDS ORDERED: DEXAMETHASONE SOD PHOS 4 MG/ML VIAL ONE (14:17)
[2016-06-30] MEDS ORDERED: MIDAZOLAM HCL 2 MG/2 ML VIAL ONE (14:17)
[2016-06-30] MEDS ORDERED: FAMOTIDINE 20 MG/2 ML VIAL ONE (14:17)
[2016-06-30] MEDS ORDERED: LACTATED RINGER'S 1000 ML IV SCH (15:00)
[2016-06-30] MEDS ORDERED: SODIUM CHLORID 0.9% 500 ML IV SCH (15:00)
[2016-06-30] MEDS ORDERED: METOPROLOL TARTRATE 25 MG TAB PO PRN (15:00)
[2016-06-30] MEDS ORDERED: INSULIN HUMAN REGULAR 1,000 UNITS/10 ML VIAL SQ PRN (15:00)
[2016-06-30] MEDS ORDERED: BUPIVACAINE/EPINEPHRINE 0.25% PF 30 ML VIAL INFIL ONE (15:11)
--- NOTE | 2016-06-30 15:59 | HHI.PR ---
cc: Bryce Rodriguez MD Immediate Post Op Note Procedure Date: Jun 30, 2016 Pre Op Diagnosis: (1) CAD (coronary artery disease) (2) Acute cholecystitis (3) Cholelithiasis (4) Hx of heart artery stent (5) Atrial flutter Post Op Diagnosis: (1) CAD (coronary artery disease) (2) Cholelithiasis (3) Acute cholecystitis (4) Atrial flutter Surgeon: Bryce Rodriguez Optometric Coordinator(s): C OR record Procedure: Laparoscopic cholecystectomy Findings: Inflamed gallbladder Complications: Episode of atrial flutter with decreased blood pressure during insufflation resolved Specimen(s) removed: Gallbladder Estimated blood loss: Minimal Anesthesia: General Drains: None IVF Patient to: PACU Patient Condition: Good Implant/Devices: SEE IMPLANT LOG (if applicable) Date/Time of Procedure: SEE SURGICAL CARE RECORD Bryce Rodriguez MD Jun 30, 2016 15:59
[2016-06-30] MEDS ORDERED: SODIUM CHLORIDE 0.9% FLUSH 10 ML FLUSH IV FLUSH PRN (16:00)
[2016-06-30] MEDS ORDERED: DO NOT ADM ANY ANTICOAGULANT DRUGS XX PRN (16:11)
[2016-06-30] MEDS ORDERED: Post-op Orders (for Pharmacy) MISC XX ONE (16:30)
--- NOTE | 2016-06-30 18:27 | HHI.PR ---
Subjective Remarks Patient underwent laparoscopic appendectomy today with Dr. Rodriguez showing an inflamed gallbladder. He had an episode of atrial flutter with hypotension during insufflation which resolved. Currently the patient has no pain. He has not yet eaten though he has been ordered a heart healthy diet. Heart rate is controlled. Objective Vitals Vital Signs Date Time Temp Pulse Resp B/P Pulse Ox O2 Delivery O2 Flow Rate FiO2 06/30/16 16:57 97.7 91 20 127/73 97 Nasal Cannula 2 06/30/16 16:45 66 16 125/72 96 Nasal Cannula 2 06/30/16 16:30 70 16 142/79 100 Nasal Cannula 2 06/30/16 16:15 89 16 138/74 99 Nasal Cannula 2 127/48 06/30/16 16:09 97.9 91 20 127/73 97 Nasal Cannula 2 06/30/16 11:32 98.1 66 12 140/67 98 06/30/16 08:00 66 06/30/16 08:00 66 06/30/16 07:30 98.3 67 14 141/76 98 06/30/16 04:00 75 06/30/16 04:00 98.8 80 18 130/69 98 06/30/16 00:00 78 06/30/16 00:00 99.0 108 18 98 06/29/16 23:13 108 137/80 06/29/16 22:54 112 138/82 98 06/29/16 22:33 131 151/90 97 06/29/16 22:13 131 140/88 99 06/29/16 20:22 107 06/29/16 20:00 99.4 115 18 132/76 100 I/O 06/29/16 06/29/16 06/29/16 06/30/16 06/30/16 06/30/16 07:00 15:00 23:00 07:00 15:00 23:00 Intake Total 330 ml 865 ml 930 ml 950 ml Output Total 400 ml 100 ml 175 ml 10 ml Balance -70 ml 765 ml 755 ml 940 ml Intake Oral 240 ml 240 ml 240 ml 0 ml IV Total 90 ml 625 ml 690 ml 150 ml Other 800 ml Output Urine Total 400 ml 100 ml 175 ml Estimated Blood Loss 10 ml # Voids 1 0 # Bowel Movements 1 0 Result Diagram: 06/29/16 1514 06/30/16 0628 Objective Remarks GENERAL: Well-nourished, well-developed pleasant male patient. SKIN: Warm and dry. HEAD: Normocephalic. EYES: No scleral icterus. No injection or drainage. NECK: Supple, trachea midline. No JVD or lymphadenopathy. CARDIOVASCULAR: Irregularly irregular rate and rhythm without murmurs, gallops, or rubs. RESPIRATORY: Breath sounds equal bilaterally. No accessory muscle use. GASTROINTESTINAL: Abdomen soft. Dressing in place, not removed. EXTREMITIES: No cyanosis, or edema. NEUROLOGICAL: Awake, alert, and oriented x 3. Non-focal. A/P Assessment and Plan -Acute cholecystitis. Status post laparoscopic cholecystectomy today June [address] Rodriguez with intraoperative findings showing an inflamed gallbladder. He is currently on heart healthy diet. He had elevated LFTs however the MRCP was negative for common bile duct stone and LFTs are down trended today. Will repeat CMP in the morning. -Atrial fibrillation with rapid ventricular rate - rate is now controlled on Cardizem drip and by mouth metoprolol. Dr. Urban of cardiology is reportedly planning an ablation after surgery. Eliquis has been on hold since TuesdayJune 25 (originally ablation was scheduled for June 28). He is on heparin drip for bridging. I will discuss with Dr. Pacheco tomorrow the timing of the ablation. -Peripheral arterial disease. History of bilateral femoral stenting. Resume Plavix tomorrow if okay with general surgery. -Hypertension. Currently controlled. Continue metoprolol but hold Cozaar until by mouth intake improved. -Mild acute kidney injury - resolved creatinine back to baseline today. Continue IV fluids until by mouth intake is good. -DVT px - SCDs, heparin gtt. Katiana Neff MD Jun 30, 2016 18:27
[2016-06-30] MEDS: ATORVASTATIN 40 MG TAB PO SCH (20:55)
[2016-06-30] MEDS: SODIUM CHLORIDE 0.9% FLUSH 10 ML FLUSH IV FLUSH SCH (20:55)
[2016-07-01] VITALS (10 sets, daily range): BP systolic 121–165; BP diastolic 63–85; PULSE 71–128; RESP 18–22; TEMP 96.8–98.4; O2SAT 92–100
[2016-07-01] MEDS: PIPERACIL-TAZO 4.5 GM PREMIX 100 ML IV SCH ×4 (03:14→23:00)
[2016-07-01] MEDS: SODIUM CHLOR 0.9% 1000 ML INJ 1,000 ML IV SCH (03:15)
[2016-07-01] MEDS ORDERED: FUROSEMIDE 40 MG/4 ML VIAL ONE (05:20)
--- NOTE | 2016-07-01 05:23 | HHI.PR ---
Addendum to Inpatient Note Addendum Reason: Additional Documentation Additional Information Rapid response was called on this patient because patient was acutely short of breath. According to the nurses, patient was coming back from the bathroom and drank a cup of water after which she had some coughing episodes. He stated that he then became severely short of breath with audible congestion. Came to see patient at the bedside. Patient is awake, alert, oriented. However she does have audible congestion from far. He is not able to cough out. He denies any feeling of choking sensation. He states he eats regular food at home. He doesn't think that he aspirated. He does report of congestive heart failure history. Chart reviewed. Patient was status post cholecystectomy on June 30, 2016. History of diastolic heart failure per echo in 2007. On exam, patient is awake, alert, oriented. He is sitting up in bed. On nonrebreather. Has comfortable congestion. Heart it just irregularly irregular. About 100. Abdomen is soft, mild tenderness diffusely particularly at surgical sites. Surgical scar is clean. Exam revealed bilateral congestion/ coarse rales. Lower extremities did not reveal any significant edema or asymmetry. Impression: Acute hypoxemic respiratory failurePossible fluid overload. Rule out aspiration as nursing staff believes that they had witnessed witnessed episode of aspiration Plan: Chest x-ray stat. Give Atrovent nebulizer 1 dose. Lasix 40 mg IV 1 dose. After the above treatment, patient somewhat improved. However still yet to measure his urine output. We'll follow up. BMP. BNP. We will closely monitor patient. We'll follow-up on the labs and the x-ray results. Critical care time 30 minutes( Bryce El MD Jul 01, 2016 05:23
[2016-07-01] MEDS ORDERED: RESP: IPRATROPIUM 0.5 MG/2.5 ML NEB NEB ONE (05:30)
--- NOTE | 2016-07-01 05:45 | RADRPT ---
EXAM DATE/TIME: 07/01/2016 05:17 [facility] COMPARISON: No previous studies available for comparison. INDICATIONS : Respiratory distress. MEDICAL HISTORY : None. SURGICAL HISTORY : None. ENCOUNTER: Initial ACUITY: 1 day PAIN SCORE: 0/10 LOCATION: Bilateral chest FINDINGS: Cardiomegaly. There is consolidation seen in the left lower lobe to a lesser extent left mid lung zon e. No effusions. Degenerative changes of the spine are seen. Right lung is clear. CONCLUSION: Left lower lobe consolidation. Marcus Vazquez MD on July 01, 2016 at 5:43 Board Certified Radiologist. This report was verified electronically.
[2016-07-01 07:20] LABS: BICARBONATE 19.2 MEQ/L (21.0-32.0); POTASSIUM 3.9 MEQ/L (3.5-5.1)
[2016-07-01] MEDS: DOCUSATE SODIUM 100 MG CAP PO SCH ×2 (08:24→21:43)
[2016-07-01] MEDS: SODIUM CHLORIDE 0.9% FLUSH 10 ML FLUSH IV FLUSH SCH ×2 (08:24→21:44)
[2016-07-01] MEDS: METOPROLOL TARTRATE 50 MG TAB PO SCH ×2 (08:24→21:43)
[2016-07-01] MEDS: AZITHROMYCIN INJ 500 MG in SODIUM CHLOR 0.9% 250 ML INJ 250 ML IV SCH (12:16)
--- NOTE | 2016-07-01 13:13 | HHI.PR ---
Subjective Remarks Patient had an episode of respiratory distress this morning. He stated that he started to cough, then he felt short of breath. A rapid response team was called and the nocturnal wrist responded at 5 AM this morning. BNP is 213. The patient is now on room air. Chest x-ray does show a left lower lobe consolidation. The patient denies any further coughing since this morning. He denies shortness of breath. He denies aspirating. He denies cough prior to the hospitalization. He denies fevers or chills. He is eating well and denies nausea or vomiting. Denies abdominal pain. He is hoping he can go home today. Objective Vitals Vital Signs Date Time Temp Pulse Resp B/P Pulse Ox O2 Delivery O2 Flow Rate FiO2 07/01/16 08:30 103 07/01/16 08:30 103 07/01/16 08:00 98.4 106 22 127/70 98 07/01/16 04:39 128 20 165/85 92 07/01/16 04:30 97.8 80 18 128/76 96 07/01/16 03:36 124 07/01/16 00:09 96.8 88 18 130/74 100 06/30/16 20:00 86 06/30/16 20:00 98.1 77 18 150/67 97 06/30/16 16:57 97.7 91 20 127/73 97 Nasal Cannula 2 06/30/16 16:45 66 16 125/72 96 Nasal Cannula 2 06/30/16 16:30 70 16 142/79 100 Nasal Cannula 2 06/30/16 16:15 89 16 138/74 99 Nasal Cannula 2 127/48 06/30/16 16:09 97.9 91 20 127/73 97 Nasal Cannula 2 06/30/16 16:00 97.4 65 18 146/69 99 I/O 06/30/16 06/30/16 06/30/16 07/01/16 07/01/16 07/01/16 07:00 15:00 23:00 07:00 15:00 23:00 Intake Total 930 ml 0 ml 1962 ml 360 ml Output Total 175 ml 400 ml 210 ml Balance 755 ml -400 ml 1752 ml 360 ml Intake Oral 240 ml 0 ml 480 ml 360 ml IV Total 690 ml 682 ml Other 800 ml Output Urine Total 175 ml 400 ml 200 ml Estimated Blood Loss 10 ml # Voids 0 2 # Bowel Movements 0 0 0 0 Result Diagram: 06/29/16 1514 07/01/16 0608 Objective Remarks GENERAL: Well-nourished, well-developed pleasant male patient. SKIN: Warm and dry. HEAD: Normocephalic. EYES: No scleral icterus. No injection or drainage. NECK: Supple, trachea midline. No JVD or lymphadenopathy. CARDIOVASCULAR: Irregularly irregular rate and rhythm without murmurs, gallops, or rubs. RESPIRATORY: Breath sounds equal bilaterally. Clear to auscultation bilaterally without rhonchi or crackles. No accessory muscle use on room air. GASTROINTESTINAL: Abdomen soft and nontender. Steri-Strips and clean dry and intact. EXTREMITIES: No cyanosis, or edema. NEUROLOGICAL: Awake, alert, and oriented x 3. Non-focal. A/P Assessment and Plan -Acute cholecystitis. Status post laparoscopic cholecystectomy June [address] Rodriguez with intraoperative findings showing an inflamed gallbladder. He is tolerating heart healthy diet. He had elevated LFTs however the MRCP was negative for common bile duct stone and LFTs are down trended today. Will repeat CMP in the morning. -Right lower lobe pneumonia - he had a Transient respiratory distress this morning which resolved and he is now stable on room air with no dyspnea or cough. Chest x-ray today does show right lower lobe infiltrate - I reviewed the images myself. He has been on Zosyn since admission. I will add Zithromax. -Atrial fibrillation with rapid ventricular rate - rate is now controlled on Cardizem drip and by mouth metoprolol. I discussed with his straight tooth gear generator operator Dr. Pedro. Previously an ablation was planned this Tuesday however the patient came into the hospital for acute cholecystitis. Ablation will be put on hold until the patient has recovered from his surgery and now pneumonia. Will resume Eliquis tonight. Dr. Pedro also reported the patient is on Cardizem however this is not reported on the patient's medication reconciliation and he is unable to tell me. Has been taking this. I did ask his nurse to call his pharmacy [facility] on [address] to verify his home medications. He is on low rate of Cardizem drip and I will continue that until we verify what dose of by mouth Cardizem he is on. Dr. Pedro will see the patient tomorrow morning. -Peripheral arterial disease. History of bilateral femoral stenting. The patient states that this was 8-9 years ago. Plavix reported on his med rec however patient states that he does not think he takes that anymore. Will DC. Discussed with Dr. Pedro. -Hypertension. Currently controlled. Continue metoprolol but hold Cozaar until by mouth intake improved. -Mild acute kidney injury -creatinine again mild increase today to 1.5. Likely related to being nothing by mouth for the surgery. I encouraged the patient to increase his by mouth intake. Would like to avoid further IV fluids given the pneumonia. -DVT px - SCDs, Eliquis. Katiana Neff MD Jul 01, 2016 13:13
[2016-07-01 13:25] LABS: AUTOMATED NEUTROPHIL # 15.8 TH/MM3 (1.8-7.7); BASOPHIL # 0.1 TH/MM3 (0-0.2); BASOPHIL % 0.6 % (0.0-2.0); HEMO FLAGS DIFF FINAL; LYMPH % 5.9 % (9.0-44.0); LYMPHOCYTE # 1.1 TH/MM3 (1.0-4.8); MEAN CORPUSCULAR HEMOGLOBIN 29.9 PG (27.0-34.0); MONO % 8.4 % (0.0-8.0); NEUT % 85.1 % (16.0-70.0); PLATELET COUNT 266 TH/MM3 (150-450); RED BLOOD COUNT 4.55 MIL/MM3 (4.50-5.90); RED CELL DISTRIBUTION WIDTH 14.4 % (11.6-17.2); WHITE BLOOD COUNT 18.6 TH/MM3 (4.0-11.0)
[2016-07-01 14:11] LABS: INDIRECT BILIRUBIN 1.2 MG/DL (0.0-0.8); TOTAL BILIRUBIN ADULT 1.5 MG/DL (0.2-1.0)
[2016-07-01] MEDS: HEPARIN-D5W INJ 250 ML IV SCH (15:56)
--- NOTE | 2016-07-01 16:34 | HHI.PR ---
Subjective Subjective Notes DAILY PROGRESS NOTE FOR SURGICAL ATTENDING, DR. BRYCE RODRIGUEZ Resting in bed Reports he drinks a little bit too much water this morning and started choking Objective Vitals/I&O Vital Signs Date Time Temp Pulse Resp B/P Pulse Ox O2 Delivery O2 Flow Rate FiO2 07/01/16 12:00 98.1 85 20 121/63 95 06/30/16 16:57 Nasal Cannula 2 06/29/16 09:18 21 Labs Laboratory Tests Test 07/01/16 07/01/16 06:08 13:12 Sodium Level 141 Potassium Level 3.9 Chloride Level 107 Carbon Dioxide Level 19.2 Anion Gap 15 Blood Urea Nitrogen 20 Creatinine 1.43 Estimat Glomerular Filtration 48 Rate Random Glucose 214 Calcium Level 9.3 B-Type Natriuretic Peptide 213 White Blood Count 18.6 Red Blood Count 4.55 Hemoglobin 13.6 Hematocrit 40.0 Mean Corpuscular Volume 88.0 Mean Corpuscular Hemoglobin 29.9 Mean Corpuscular Hemoglobin 34.0 Concent Red Cell Distribution Width 14.4 Platelet Count 266 Mean Platelet Volume 7.9 Neutrophils (%) (Auto) 85.1 Lymphocytes (%) (Auto) 5.9 Monocytes (%) (Auto) 8.4 Eosinophils (%) (Auto) 0.0 Basophils (%) (Auto) 0.6 Neutrophils # (Auto) 15.8 Lymphocytes # (Auto) 1.1 Monocytes # (Auto) 1.6 Eosinophils # (Auto) 0.0 Basophils # (Auto) 0.1 CBC Comment DIFF FINAL Differential Comment Total Bilirubin 1.5 Direct Bilirubin 0.3 Indirect Bilirubin 1.2 Aspartate Amino Transf 69 (AST/SGOT) Alanine Aminotransferase 91 (ALT/SGPT) Alkaline Phosphatase 104 Total Protein 7.4 Albumin 2.7 Radiology Last Impressions Cholangiopancreatography MRI 06/29/16 0000 Signed Impressions: Service Date/Time: Wednesday, June 29, 2016 16:14 - CONCLUSION: Cholelithiasis and fatty liver. Brinda Murphy MD Abdomen/Pelvis CT 06/27/16 0701 Signed Impressions: Service Date/Time: Monday, June 27, 2016 08:07 - CONCLUSION: 1. Hepatic steatosis with areas of focal fatty sparing. 2. Cholelithiasis. 3. Left-sided renal cyst. 4. Small right pleural effusion. Walter Jimenez MD Last 48 hours Impressions Abdomen/Pelvis CT 06/27/16 07 Signed Impressions: Service Date/Time: Monday, June 27, 2016 08:07 - CONCLUSION: 1. Hepatic steatosis with areas of focal fatty sparing. 2. Cholelithiasis. 3. Left-sided renal cyst. 4. Small right pleural effusion. Walter Jimenez MD Cardiovascular: Regular Lungs: Clear Abdomen: Other (lab sites clean dry and intact; ), Post-op tenderness Extremities: No edema A/P Problem List: (1) Cellulitis (2) Acute cholecystitis (3) Cholelithiasis (4) Hx of heart artery stent (5) Status post total knee replacement, right Assessment and Plan 75 year old male with acute cholelithiasis with multiple medical problems -Postop day 1 laparoscopic cholecystectomy -Heart healthy diet -Restart Elliquis per primary and cardiology team -Gen. surgery cleared for discharge -Follow-up with Dr. Rodriguez in 7-10 days Attending Statement NOTE FOR SURGICAL ATTENDING, DR. BRYCE RODRIGUEZ I agree with above assessment and plan. The exam, history, and the medical decision-making described in the above note were completed with the assistance of the mid-level provider. I reviewed and agree with the findings presented. I attest that I had a [id number] encounter with the patient on the same day, and personally performed and documented my assessment and findings in the medical record. The following services were provided during this hospital visit: Chart data review, vital sign assessments/reviewing monitor data Review of consultations notes if present. Medication orders/review and/or management Ordering and/or reviewing lab tests Ordering and/or interpreting/reviewing x-rays and/or diagnostic studies Care of the patient and discussion of the patient with the care team Documentation time To help prompt me to consider important information that might be impacting today's encounter and assessment, information from prior notes written by myself or my colleagues may have been "brought forward/copy and pasted" into today's note. Problem Qualifiers (1) Cholelithiasis: Qualified Code: K80.00 - Calculus of gallbladder with acute cholecystitis without obstruction Margy Menchaca Jul 01, 2016 16:34 Bryce Rodriguez MD Jul 02, 2016 09:06
[2016-07-01 19:43] LABS: APTT (PATIENT) 37.6 SEC (24.3-30.1)
[2016-07-01] MEDS: APIXABAN 5 MG TABLET PO SCH (21:43)
[2016-07-01] MEDS: ATORVASTATIN 40 MG TAB PO SCH (21:43)
[2016-07-02] VITALS (8 sets, daily range): BP systolic 136–163; BP diastolic 61–91; PULSE 65–115; RESP 18–20; TEMP 97.7–98.8; O2SAT 92–96
[2016-07-02] MEDS: PIPERACIL-TAZO 4.5 GM PREMIX 100 ML IV SCH ×4 (04:56→22:00)
[2016-07-02 07:30] LABS: AUTOMATED NEUTROPHIL # 10.7 TH/MM3 (1.8-7.7); BASOPHIL % 0.3 % (0.0-2.0); EOSINOPHIL # 0.2 TH/MM3 (0-0.4); EOSINOPHIL % 1.8 % (0.0-4.0); HEMATOCRIT 38.3 % (39.0-51.0); HEMO FLAGS DIFF FINAL; LYMPH % 9.9 % (9.0-44.0); LYMPHOCYTE # 1.4 TH/MM3 (1.0-4.8); MEAN CELL VOLUME 87.9 FL (80.0-100.0); MEAN CORPUSCULAR HEMOGLOBIN 29.6 PG (27.0-34.0); MEAN CORPUSCULAR HGB CONC 33.7 % (32.0-36.0); MONO % 10.1 % (0.0-8.0); NEUT % 77.9 % (16.0-70.0); PLATELET COUNT 215 TH/MM3 (150-450); RED BLOOD COUNT 4.35 MIL/MM3 (4.50-5.90); RED CELL DISTRIBUTION WIDTH 14.3 % (11.6-17.2); WHITE BLOOD COUNT 13.7 TH/MM3 (4.0-11.0)
[2016-07-02 08:00] LABS: BICARBONATE 23.5 MEQ/L (21.0-32.0); POTASSIUM 3.4 MEQ/L (3.5-5.1)
[2016-07-02] MEDS: APIXABAN 5 MG TABLET PO SCH ×2 (08:12→21:55)
[2016-07-02] MEDS: METOPROLOL TARTRATE 50 MG TAB PO SCH (08:13)
[2016-07-02] MEDS: SODIUM CHLORIDE 0.9% FLUSH 10 ML FLUSH IV FLUSH SCH ×2 (09:00→21:55)
[2016-07-02] MEDS: DOCUSATE SODIUM 100 MG CAP PO SCH ×2 (09:00→21:55)
[2016-07-02] MEDS ORDERED: DILTIAZEM INJ 125 MG in SODIUM CHLORIDE 0.9% INJ 100 ML IV SCH (10:00)
--- NOTE | 2016-07-02 11:08 | MB ---
cc: ADA STARK M.D. DATE OF CONSULTATION: 07/02/2016 REASON FOR CONSULTATION Evaluation of cardiac status and atrial flutter. HISTORY OF PRESENT ILLNESS Adam Miller is a 75-year-old man that I follow in my practice. He has known coronary artery disease. Recently he has developed an atrial flutter and was going to have an ablation done. He was admitted to the hospital on June 27 with a diagnosis of acute cholecystitis. He underwent cholecystectomy on June 30. He is currently on IV Cardizem. He is on his metoprolol that he was taking prior to admission. At the time I am seeing him he is asking if he can go home. He denies any anginal pain. He has a cough that is nonproductive. He has a left lower lobe infiltrate on his chest x-ray. Denies any acute cardiovascular complaints. He is on a 5 mg IV diltiazem drip in addition to his oral medications. MEDICATIONS 1. 5 mg IV diltiazem. 2. He is restarted on his apixaban 5 mg b.i.d. 3. He is getting azithromycin 250 mL every 24 hours which contains 500 mg. 4. Metoprolol 50 mg p.o. b.i.d. 5. Atorvastatin 40 mg daily. PAST MEDICAL HISTORY 1. Known coronary artery disease. He had stents of his proximal LAD and circumflex artery April 08, 2009. His last cardiac cath was August 30, 2011. EF was 60%, LAD had diffuse 60-70% mid disease, 90% small ramus disease, 60% proximal circumflex disease and occlusion of the distal right coronary artery. His coronary disease has been managed medically. 2. Carotid artery disease with a previous left carotid endarterectomy. 3. Stage III kidney disease. 4. Type 2 diabetes. 5. Hyperlipidemia. 6. Hypertension. 7. Degenerative arthritis. 8. Peripheral arterial disease. ALLERGIES None known. FAMILY HISTORY Positive for coronary disease and hypertension in his mother and MS in his father. SOCIAL HISTORY He has never smoked. He is retired. He is single. REVIEW OF SYSTEMS Noncontributory. He is eating and is having bowel movements. PHYSICAL EXAMINATION GENERAL: A fairly healthy-looking, well-developed, well-nourished man in no acute distress. VITAL SIGNS: Blood pressure is 146/91 to 143/74. Heart rate is under 100. HEENT: Exam is unremarkable. NECK: No JVD. No bruits. CHEST: Absent breath sounds at the left base. CARDIAC: S1, S2, regularly irregular. There is no S3. ABDOMEN: Soft. EXTREMITIES: No peripheral edema. EKG His EKGs show atrial flutter with variable degrees of AV conduction. The EKG from June 28 at 5:00 a.m. showed 2:1 conduction. LABORATORY His laboratories are charted. Hematocrit is 38.3 today with an elevated white count of 13,700, although it is slightly lower than 18,600 yesterday. Potassium 3.4, creatinine 1.16, AST 69, ALT 91, albumin 2.7. IMPRESSION Atrial flutter, currently controlled with low-dose IV Cardizem and metoprolol, anticoagulated with p.o. apixaban. PLAN/RECOMMENDATIONS I am going to add p.o. diltiazem and see if we can wean off the diltiazem drip. Otherwise from a cardiac status he appears fairly stable. He is being treated for pneumonia which will be handled by the primary team. Further therapy to be determined. MD MORAIMA Rose/HAZEL /9:57 AM /10:55 AM
[2016-07-02] MEDS: DILTIAZEM-CD 180 MG CAP ER PO SCH (11:52)
[2016-07-02] MEDS: AZITHROMYCIN INJ 500 MG in SODIUM CHLOR 0.9% 250 ML INJ 250 ML IV SCH (11:53)
--- NOTE | 2016-07-02 13:18 | MP ---
cc: LAURA RODRIGUEZ M.D. DATE OF SURGERY: 06/30/2016. PREOPERATIVE DIAGNOSIS: 1. Cholelithiasis, cholecystitis. 2. atrial flutter. POSTOPERATIVE DIAGNOSIS: 1. Cholelithiasis, cholecystitis. 2. Atrial flutter. OPERATIVE PROCEDURE PERFORMED: Laparoscopic cholecystectomy ANESTHESIA: General. SURGEON: Laura Rodriguez MD. INDICATIONS FOR THE PROCEDURE: This is a pleasant 75-year-old gentleman who has atrial flutter. He was going to be ablated; however, he developed acute cholecystitis requiring surgical intervention. I talked to the cardiologists who felt I could proceed with cholecystectomy and he would do the ablation in 30 days after he had been on anticoagulation. FINDINGS: Intraoperatively during the initial insufflation, he did have atrial flutter with rapid rate with a slight decrease in his blood pressure. The insufflation was stopped and reassessed at very low rate which he tolerated. DESCRIPTION OF THE PROCEDURE IN DETAIL: The patient was taken to the operating room and placed in the supine position. After anesthesia, we prepped the abdomen with Betadine. We made an incision just below the umbilicus. The Veress needle was inserted. The saline load test was performed. The abdomen was insufflated to 15 mmHg. We then placed a 10 mm trocar and once it was connected to the insufflation device, anesthesia asked me to de-insufflate the abdomen because he had a vasovagal reaction and this was done. They placed an arm line in and then I re-insufflated using a lower pressure and he appeared to tolerate. So once we were able to insufflate the abdomen, first at 8 mmHg pressure and then up to 15, he had no vascular instability. We then placed two other working ports, a 5 mm below the xiphoid and a 5 mm in the midline between the two previously placed ports. The gallbladder could be seen. It was obviously inflamed. It was grasped superiorly and laterally identifying the cystic duct and cystic artery both of which were doubly ligated and transected. The gallbladder was then teased off the gallbladder bed, placed in EndoCatch and pulled out the umbilical incision which had to be elongated because of the size of the gallbladder. We then reassessed the dissection site. There was excellent hemostasis without biliary leakage. The liver was smooth. The peritoneal surface was smooth. No other gross abnormality was seen. The irrigating solution and the C02 was removed. The port sites at the umbilicus were closed with a #0 Vicryl at the fascial layer. The skin was closed at all three sites with a 4-0 Vicryl. Steri-Strips were applied. Sterile bandage was applied. The patient tolerated the procedure well and had no immediate postoperative complications. MD BRYNN Mejia/MARK /4:10 PM /1:10 PM
--- NOTE | 2016-07-02 15:57 | HHI.PR ---
Subjective Remarks Follow-up for pneumonia, A. fib with RVR. Patient denies any cough or dyspnea. Stable on room air. Heart rate is 80s on low-dose Cardizem drip. He wants to go home. Objective Vitals Vital Signs Date Time Temp Pulse Resp B/P Pulse Ox O2 Delivery O2 Flow Rate FiO2 07/02/16 14:42 93 07/02/16 12:00 98.1 115 20 163/69 95 07/02/16 08:07 96 21 07/02/16 08:00 98.8 94 18 146/91 94 07/02/16 04:00 98.3 70 18 143/74 92 07/02/16 00:00 97.7 91 18 150/73 95 07/01/16 20:30 79 07/01/16 20:00 98.4 74 18 150/71 95 07/01/16 16:00 98.2 71 20 125/67 95 I/O 07/01/16 07/01/16 07/01/16 07/02/16 07/02/16 07/02/16 07:00 15:00 23:00 07:00 15:00 23:00 Intake Total 810 ml 480 ml 215 ml Output Total 825 ml 125 ml Balance 810 ml -345 ml 90 ml Intake Oral 360 ml 480 ml 0 ml IV Total 450 ml 215 ml Output Urine Total 825 ml 125 ml # Voids 2 1 # Bowel Movements 0 0 0 Result Diagram: 07/02/16 0555 07/02/16 0555 Objective Remarks GENERAL: Well-nourished, well-developed pleasant male patient. SKIN: Warm and dry. HEAD: Normocephalic. EYES: No scleral icterus. No injection or drainage. NECK: Supple, trachea midline. No JVD or lymphadenopathy. CARDIOVASCULAR: Irregularly irregular rate and rhythm without murmurs, gallops, or rubs. RESPIRATORY: Breath sounds equal bilaterally. Clear to auscultation bilaterally without rhonchi or crackles. No accessory muscle use on room air. GASTROINTESTINAL: Abdomen soft and nontender. Steri-Strips and clean dry and intact. EXTREMITIES: No cyanosis, or edema. NEUROLOGICAL: Awake, alert, and oriented x 3. Non-focal. A/P Assessment and Plan -Acute cholecystitis. Status post laparoscopic cholecystectomy June [address] Michael with intraoperative findings showing an inflamed gallbladder. He is tolerating heart healthy diet. He had elevated LFTs however the MRCP was negative for common bile duct stone and LFTs are down trended today. -Right lower lobe pneumonia - he had a Transient respiratory distress morning of 06/30 which resolved quickly and he is now stable on room air with no dyspnea or cough. Chest x-ray 06/30 did show right lower lobe infiltrate. He has been on Zosyn since admission. Day 2 Zithromax. -Atrial fibrillation with rapid ventricular rate - rate is now controlled on Cardizem drip and by mouth metoprolol. I discussed with his wet crown blocking operator Dr. Pedro yesterday. Previously an ablation was planned this Tuesday however the patient came into the hospital for acute cholecystitis. Ablation will be put on hold until the patient has recovered from his surgery and now pneumonia. Patient's by mouth Cardizem has been resumed. Will give his p.m. dose of metoprolol now and wean off Cardizem drip. -Peripheral arterial disease. History of bilateral femoral stenting. The patient states that this was 8-9 years ago. Plavix reported on his med rec however patient states that he does not think he takes that anymore. This has been discontinued. Discussed with Dr. Pedro. I did ask the nurse today for the second time to call his pharmacy [facility] on [address] to verify his home medications. -Hypertension. Blood pressure elevated. Cardizem was resumed today and will increase metoprolol to 75 mg by mouth twice a day. -Mild acute kidney injury -resolved. He likely has some mild chronic kidney disease. -DVT px - SCDs, Eliquis. Discharge Planning Anticipate discharge home tomorrow morning if rate is controlled. Katiana Neff MD Jul 02, 2016 15:57
[2016-07-02] MEDS ORDERED: METOPROLOL TARTRATE 50 MG TAB PO ONE (16:15)
[2016-07-02] MEDS: ATORVASTATIN 40 MG TAB PO SCH (21:55)
[2016-07-03] VITALS: BP 109/61; PULSE 87; RESP 18; TEMP 97.4; O2SAT 91
[2016-07-03 04:00] VITALS: BP 140/70; PULSE 87; RESP 18; TEMP 98.2; O2SAT 92
[2016-07-03] MEDS: PIPERACIL-TAZO 4.5 GM PREMIX 100 ML IV SCH ×2 (04:45→09:56)
[2016-07-03] MEDS ORDERED: CENTTAB PO (06:55)
[2016-07-03] MEDS ORDERED: VITA1000 PO (06:55)
[2016-07-03] MEDS ORDERED: DILT-30 PO ×2 (06:55→12:19)
[2016-07-03 08:04] VITALS: BP 163/79; PULSE 69; RESP 18; TEMP 98.9; O2SAT 93
[2016-07-03] MEDS ORDERED: METOPROLOL TARTRATE 50 MG TAB PO SCH ×2 (09:00→21:00)
[2016-07-03] MEDS: DILTIAZEM-CD 180 MG CAP ER PO SCH (09:55)
[2016-07-03] MEDS: SODIUM CHLORIDE 0.9% FLUSH 10 ML FLUSH IV FLUSH SCH (09:55)
[2016-07-03] MEDS: DOCUSATE SODIUM 100 MG CAP PO SCH (09:55)
[2016-07-03] MEDS: APIXABAN 5 MG TABLET PO SCH (09:56)
[2016-07-03] MEDS: AZITHROMYCIN INJ 500 MG in SODIUM CHLOR 0.9% 250 ML INJ 250 ML IV SCH (11:53)
[2016-07-03 12:04] VITALS: BP 125/73; PULSE 62; RESP 18; TEMP 97.2; O2SAT 96
[2016-07-03] MEDS ORDERED: AUGM875T PO (12:19)
[2016-07-03] MEDS ORDERED: METO50TA PO (12:19)
[2016-07-03] MEDS ORDERED: ZITH500T PO (12:19)
[2016-07-03] MEDS ORDERED: LOSA25TA PO (12:19)
--- NOTE | 2016-07-03 12:26 | PD.CARD.PN ---
Subjective Subjective Remarks no complaints. asking to go home Objective Medications Current Medications Medications (Trade) Dose Ordered Sig/Trisha Route Start Time Stop Time Status Last Admin (Tylenol) 650 mg Q4H PRN PO 06/27/16 09:45 (Zofran Inj) 4 mg Q6H PRN IVP 06/27/16 11:30 (Narcan Inj) 0.4 mg UNSCH PRN IV 06/27/16 11:30 (Cozaar) 12.5 mg DAILY PO 06/28/16 09:00 Hold 06/29/16 09:25 (Lipitor) 40 mg HS PO 06/27/16 21:00 07/02/16 21:55 Miscellaneous 1 ea 1 ea UNSCH PRN OTHER 06/27/16 11:45 (Zosyn 4.5 Gm Premix) 100 ml @ 200 mls/hr Q6H IV 06/27/16 16:00 07/03/16 09:56 (Roxicodone) 5 mg Q4H PRN PO 06/28/16 11:00 (Roxicodone) 10 mg Q4H PRN PO 06/28/16 11:00 (Colace) 100 mg BID PO 06/28/16 21:00 07/03/16 09:55 (NS Flush) 2 ml UNSCH PRN IV FLUSH 06/30/16 16:00 Sodium Chloride 2 ml 2 ml BID IV FLUSH 06/30/16 21:00 07/03/16 09:55 (Zithromax Inj/ NS 250 ml Inj) 250 ml @ 250 mls/hr Q24H IV 07/01/16 11:00 07/03/16 11:53 (Eliquis) 5 mg BID PO 07/01/16 21:00 07/03/16 09:56 Diltiazem HCl 180 mg 180 mg DAILY PO 07/02/16 10:00 07/03/16 09:55 (Cardizem Inj/NS Inj) 125 ml @ 0 mls/hr TITRATE IV 07/02/16 10:00 07/02/16 13:08 (Lopressor) 50 mg BID PO 07/03/16 21:00 Vital Signs / I&O Vital Signs Date Time Temp Pulse Resp B/P Pulse Ox O2 Delivery O2 Flow Rate FiO2 07/03/16 08:04 98.9 69 18 163/79 93 07/03/16 04:00 98.2 87 18 140/70 92 07/03/16 00:00 97.4 87 18 109/61 91 07/02/16 20:00 65 07/02/16 20:00 98.4 76 18 141/63 92 07/02/16 16:00 98.6 87 20 136/61 95 07/02/16 14:42 93 I/O 07/02/16 07/02/16 07/02/16 07/03/16 07/03/16 07/03/16 07:00 15:00 23:00 07:00 15:00 23:00 Intake Total 215 ml 480 ml 480 ml 100 ml Output Total 125 ml 300 ml Balance 90 ml 480 ml 480 ml -200 ml Intake Oral 0 ml 480 ml 480 ml 100 ml IV Total 215 ml Output Urine Total 125 ml 300 ml # Voids 3 1 # Bowel Movements 0 2 1 0 Physical Exam Alert CV S1 S2 RRR (aflutter with CVR on tele; off of IV dilt) No edema Assessment and Plan Problem List: (1) Atrial flutter Assessment and Plan: controlled with PO meds (2) CAD (coronary artery disease) Assessment and Plan: No angina (3) Hypertension Assessment and Plan: controlled Assessment and Plan OK with me to DC allen Eliu Pedor MD Jul 03, 2016 12:26
--- NOTE | 2016-07-03 12:49 | HHI.DS ---
Discharge Summary Admission Date Jun 27, 2016 at 09:30 Discharge Date: Jul 03, 2016 Admitting Diagnosis acute cholecystitis. Cholelithiasis. Atrial flutter. (1) Acute cholecystitis ICD Code: K81.0 (2) Leukocytosis ICD Code: D72.829 (3) Pneumonia ICD Code: J18.9 (4) Atrial flutter ICD Code: I48.92 (5) Hypertension ICD Code: I10 (6) ROSSY (acute kidney injury) ICD Code: N17.9 (7) CAD (coronary artery disease) ICD Code: I25.10 (8) Atrial flutter with rapid ventricular response ICD Code: I48.92 Procedures See below Brief History - From Admission 75 years old male with history of peripheral vascular disease and stenting in his bilateral femoral arteries for which she is on Plavix, also history of atrial flutter/fibrillation for which he was supposed to have ablation with Dr. Pacheco tomorrow, patient is on elliquis. Patient presented to the ED complaining of abdominal pain around 6 and 7 out of 10, mainly in the right upper quadrant no nausea or vomiting, no sweating, no short of breath, no diarrhea or constipation. Patient isn't defined relation to food or other exacerbating or elevating factors, CT of the abdomen showed cholelithiasis with steatosis, surgery consulted from ED they recommended admission to medical service with consultation for cardiology for appearance, holding Plavix and elliquis. And nothing by mouth after midnight. General patient is poor historian, he is laying in bed now stated his pain is better with medication, denied any nausea vomiting diarrhea fever or chills CBC/BMP: 07/02/16 0555 07/02/16 0555 Significant Findings Laboratory Tests Test 07/01/16 07/01/16 07/01/16 07/02/16 06:08 13:12 18:51 05:55 Carbon Dioxide Level 19.2 MEQ/L (21.0-32.0) Blood Urea Nitrogen 20 MG/DL (7-18) 19 MG/DL (7-18) Creatinine 1.43 MG/DL (0.60-1.30) Estimat Glomerular Filtration 48 ML/MIN (>89) 61 ML/MIN (>89) Rate Random Glucose 214 MG/DL (74-106) B-Type Natriuretic Peptide 213 PG/ML (0-100) White Blood Count 18.6 TH/MM3 13.7 TH/MM3 (4.0-11.0) (4.0-11.0) Neutrophils (%) (Auto) 85.1 % 77.9 % (16.0-70.0) (16.0-70.0) Lymphocytes (%) (Auto) 5.9 % (9.0-44.0) Monocytes (%) (Auto) 8.4 % (0.0-8.0) 10.1 % (0.0-8.0) Neutrophils # (Auto) 15.8 TH/MM3 10.7 TH/MM3 (1.8-7.7) (1.8-7.7) Monocytes # (Auto) 1.6 TH/MM3 1.4 TH/MM3 (0-0.9) (0-0.9) Total Bilirubin 1.5 MG/DL (0.2-1.0) Direct Bilirubin 0.3 MG/DL (0.0-0.2) Indirect Bilirubin 1.2 MG/DL (0.0-0.8) Aspartate Amino Transf 69 U/L (15-37) (AST/SGOT) Alanine Aminotransferase 91 U/L (12-78) (ALT/SGPT) Albumin 2.7 GM/DL (3.4-5.0) Activated Partial 37.6 SEC Thromboplast Time (24.3-30.1) Red Blood Count 4.35 MIL/MM3 (4.50-5.90) Hemoglobin 12.9 GM/DL (13.0-17.0) Hematocrit 38.3 % (39.0-51.0) Potassium Level 3.4 MEQ/L (3.5-5.1) Chloride Level 108 MEQ/L (98-107) PE at Discharge GENERAL: Well-nourished, well-developed pleasant male patient. SKIN: Warm and dry. HEAD: Normocephalic. EYES: No scleral icterus. No injection or drainage. NECK: Supple, trachea midline. No JVD or lymphadenopathy. CARDIOVASCULAR: Irregularly irregular rate and rhythm without murmurs, gallops, or rubs. RESPIRATORY: Breath sounds equal bilaterally. Clear to auscultation bilaterally without rhonchi or crackles. No accessory muscle use on room air. GASTROINTESTINAL: Abdomen soft and nontender. Steri-Strips and clean dry and intact. EXTREMITIES: No cyanosis, or edema. NEUROLOGICAL: Awake, alert, and oriented x 3. Non-focal. Hospital Course -Acute cholecystitis. Status post laparoscopic cholecystectomy June [address] Rodriguez with intraoperative findings showing an inflamed gallbladder. He is tolerating heart healthy diet. He had elevated LFTs however the MRCP was negative for common bile duct stone and LFTs are down trended today. -Right lower lobe pneumonia - he had a Transient respiratory distress morning of 06/30 which resolved quickly and he is now stable on room air with no dyspnea or cough. Chest x-ray 06/30 did show right lower lobe infiltrate. He has been on Zosyn since admission. zithromax added. 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 Pedro. Previously an ablation was planned this Tuesday however the patient came into the hospital for acute cholecystitis. Ablation will be put on hold until the patient has recovered from his surgery and now pneumonia. Patient has been weaned off cardizem drip and rate controlled on PO metoprolol and cardizem. -Peripheral arterial disease. History of bilateral femoral stenting. NO plavix. Cont eliquis. -Hypertension. Blood pressure elevated. cont cardizem, metoprolol. -Mild acute kidney injury -resolved. He likely has some mild chronic kidney disease. -DVT px - SCDs, Eliquis. Pt Condition on Discharge: Stable Discharge Disposition: Discharge Home Discharge Time: > 30 minutes Discharge Instructions DIET: Follow Instructions for: Heart Healthy Diet Activities you can perform: Regular-No Restrictions Follow up Referrals: Cardiology - 2 Weeks with Guy Urban MD PCP Follow-up with Omar Thapa MD Surgical - 10 Days with Bryce Rodriguez MD New Medications: Amoxicillin-Clavulanate (Augmentin) 875-125 mg Tab 875 MG PO BID not for use in CrCl <30 ml/min. Infection #10 Ref 0 TAB Azithromycin (Zithromax) 500 Mg Tab 500 MG PO DAILY Infection #2 Ref 0 TAB Changed Medications: Losartan (Losartan) 25 Mg Tab 25 MG PO DAILY Blood Pressure Management #30 Ref 0 TAB (Changed from: 12.5 MG; 15) Continued Medications: Apixaban (Eliquis) 5 Mg Tab 5 MG PO BID Blood Clot Prevention #60 Ref 0 TAB Atorvastatin (Lipitor) 40 Mg Tab 40 MG PO HS Cholesterol Management #30 Ref 0 TAB Cholecalciferol (Vitamin D-1000) 1,000 Unit Tab 2000 UNITS PO DAILY Nutritional Supplement #1 Ref 0 BOTTLE Diltiazem ER 24 HR (Diltiazem ER 24 HR) 180 Mg Caper 180 MG PO DAILY control heart rate #30 Ref 0 CAP (This prescription has been renewed) Metoprolol Tartrate (Metoprolol Tartrate) 50 Mg Tab 50 MG PO BID control heart rate #60 Ref 0 TAB (This prescription has been renewed) Multiple Vitamins W/ Minerals (Centrum Silver) 1 Tab 1 TAB PO DAILY Nutritional Supplement Ref 0 TAB Ranitidine (Ranitidine) 150 Mg Tab 150 MG PO BID Heartburn Management #60 Ref 0 TAB Discontinued Medications: Clopidogrel (Plavix) 75 Mg Tab 0.5 TAB PO DAILY Blood Clot Prevention #30 Ref 0 TAB Katiana Neff MD Jul 03, 2016 12:49
== END 2016-07-03 13:44 | disposition home or self-care (01) | DRG 417 ==
LOC: PHED 06:35 → PHEDA 09:30 → N07A 18:33 → N04A 06-29 14:38
PROVIDERS: ADMIT Family Medicine; ATTEND Family Medicine
PROC: 0FT44ZZ Resection of Gallbladder, Percutaneous Endoscopic Approach (ICD-10-PCS; principal; 2016-06-30 14:35)
DX: K80.12 Calculus of gallbladder with acute and chronic cholecystitis without obstruction (principal); J18.9 Pneumonia, unspecified organism; J96.01 Acute respiratory failure with hypoxia; N17.9 Acute kidney failure, unspecified; I48.92 Unspecified atrial flutter; E11.22 Type 2 diabetes mellitus with diabetic chronic kidney disease; I50.32 Chronic diastolic (congestive) heart failure; J44.0 Chronic obstructive pulmonary disease with (acute) lower respiratory infection; I48.91 Unspecified atrial fibrillation; N18.3 Chronic kidney disease, stage 3 (moderate); I12.9 Hypertensive chronic kidney disease with stage 1 through stage 4 chronic kidney disease, or unspecified chronic kidney disease; E78.5 Hyperlipidemia, unspecified; I73.9 Peripheral vascular disease, unspecified; I25.10 Atherosclerotic heart disease of native coronary artery without angina pectoris; M19.90 Unspecified osteoarthritis, unspecified site; Z96.651 Presence of right artificial knee joint; Z79.01 Long term (current) use of anticoagulants; Z82.49 Family history of ischemic heart disease and other diseases of the circulatory system; Z95.5 Presence of coronary angioplasty implant and graft
CPT/HCPCS: 71010; 74177; 74181; 76377; 76937; 80048; 80053; 80076; 81001; 82948; 83690; 83735; 83880; 85025; 85027; 85610; 85730; 88304; 93005; 94150; 94664; 96374; C9113; J0171; J0456; J1100; J1644; J1940; J2250; J2405; J2543; J3010; J7030; J7050; J7644; Q9967

== ENCOUNTER 2016-07-26 06:45 | Day surgery (SDC) | payer OTHER ==
[~2016-07-26] VITALS: Ht 172.7 cm; Wt 76.8 kg
[2016-07-26] VITALS (12 sets, daily range): BP systolic 121–143; BP diastolic 66–80; PULSE 57–76; RESP 16–18; TEMP 97.8–98.4; O2SAT 94–98
[~2016-07-26 06:45] MED LIST changes: +APIX5TAB PO; +AUGM875T PO; -BACT800T5 PO; +CENTTAB PO; -CENTTAB9 PO; -CLOP75 PO; +DILT-30 PO; -HYZA100T6 PO; +LOSA25TA PO; +METO50TA PO; -MUPI2%T TOP; -TOPR50TA PO; -VITA-13 PO; +VITA1000 PO; -Z.0.WALKERFRONT; +ZITH500T PO
[2016-07-26] MEDS ORDERED: POVIDONE IODINE 5% (ANTISEPSIS KIT) 4 APPLICATIONS EACH NARE PRN (07:15)
[2016-07-26] MEDS ORDERED: LACTATED RINGER'S 1000 ML IV PRN (07:15)
[2016-07-26] MEDS ORDERED: METOPROLOL TARTRATE 25 MG TAB PO PRN (07:15)
[2016-07-26] MEDS ORDERED: SODIUM CHLORID 0.9% 500 ML INJ 500 ML IV SCH (07:15)
[2016-07-26] MEDS ORDERED: INSULIN HUMAN REGULAR 1,000 UNITS/10 ML VIAL SQ PRN (07:15)
[2016-07-26] MEDS ORDERED: SODIUM CHLORID 0.9% 500 ML IV PRN (07:15)
[2016-07-26] MEDS ORDERED: LORazepam 1 MG TAB SL SCH (07:15)
[2016-07-26] MEDS ORDERED: CHLORHEXIDINE GLUCONATE 2 % 1 PACK (2 CLOTHS) TOPICAL PRN (07:15)
[2016-07-26] MEDS ORDERED: VITA10002 PO (07:36)
[2016-07-26 07:59] LABS: AUTOMATED NEUTROPHIL # 5.9 TH/MM3 (1.8-7.7); BASOPHIL # 0.1 TH/MM3 (0-0.2); BASOPHIL % 0.6 % (0.0-2.0); EOSINOPHIL # 0.3 TH/MM3 (0-0.4); HEMATOCRIT 40.3 % (39.0-51.0); HEMO FLAGS DIFF FINAL; LYMPH % 21.3 % (9.0-44.0); MEAN CELL VOLUME 87.6 FL (80.0-100.0); MEAN CORPUSCULAR HEMOGLOBIN 30.3 PG (27.0-34.0); MEAN CORPUSCULAR HGB CONC 34.6 % (32.0-36.0); NEUT % 64.1 % (16.0-70.0); PLATELET COUNT 191 TH/MM3 (150-450); RED CELL DISTRIBUTION WIDTH 14.9 % (11.6-17.2); WHITE BLOOD COUNT 9.2 TH/MM3 (4.0-11.0)
[2016-07-26 08:08] LABS: APTT (PATIENT) 24.5 SEC (24.3-30.1)
[2016-07-26 08:21] LABS: BICARBONATE 26.4 MEQ/L (21.0-32.0)
[2016-07-26] MEDS ORDERED: MIDAZOLAM HCL 2 MG/2 ML VIAL ONE (10:12)
[2016-07-26] MEDS ORDERED: ISOPROTERENOL HCL 1 MG/5 ML AMP ONE (10:12)
[2016-07-26] MEDS ORDERED: LIDOCAINE HCL 1% 50 ML VIAL INFIL PRN (12:00)
[2016-07-26] MEDS ORDERED: oxyCODONE/ACETAMINOPHEN 5 MG/325 MG TAB PO PRN ×2 (12:00)
[2016-07-26] MEDS ORDERED: LORazepam 2 MG/ML VIAL IV PRN (12:00)
[2016-07-26] MEDS ORDERED: METOCLOPRAMIDE HCL 10 MG/2 ML VIAL IV PRN (12:00)
[2016-07-26] MEDS ORDERED: DO NOT ADM ANY ANTICOAGULANT DRUGS PRN (12:00)
[2016-07-26] MEDS ORDERED: SODIUM CHLOR 0.9% 250 ML INJ 250 ML IV PRN (12:00)
[2016-07-26] MEDS ORDERED: ONDANSETRON HCL 4 MG/2 ML VIAL IV PRN (12:00)
[2016-07-26] MEDS ORDERED: ATROPINE SULFATE 1 MG/ML VIAL IV PRN (12:00)
--- NOTE | 2016-07-26 12:41 | MA ---
cc: MACIEJ DAN M.D. DATE: 07/26/2016 PROCEDURE Electrophysiology study, CS cannulation, 3-D mapping, radiofrequency ablation of atrial flutter, repeat electrophysiology study on Isuprel infusion. INDICATION Mr. Miller is a 75-year-old gentleman with atrial flutter symptomatic on anticoagulation, referred for electrophysiology study and ablation. The risks, the nature and the benefit of the procedure are clearly stated to him. The risks include pneumothorax, cardiac perforation, stroke, need for open heart surgery and even . The patient understood and agreed to proceed. PROCEDURE After written informed consent was obtained, the patient was brought to the EP lab where he was prepped and draped in the usual sterile fashion. Conscious sedation was initiated and maintained throughout the procedure by anesthesiologist. Once sedation was verified, the right and left inguinal area was anesthetized with 2% Xylocaine. Using modified Seldinger technique, the left femoral vein was cannulated on three occasions, three guidewires were advanced. Over the wire three 5-[place] Hemaquet were advanced. Then the right femoral vein was cannulated on two occasions, two guidewires were advanced. Over the wire a 6 and 8-[place] Hemaquet were advanced. Then under fluoroscopic guidance through the 5 and 6-[place] Hemaquet, four 5-[place] curved quadripolar electrophysiology catheters were advanced and placed around the His, upper right atrium, coronary sinus and right ventricular apex. Basic interval was measured. The patient was in atrial flutter. Flutter cycle length was around 256 milliseconds. Entrainment was performed. It was positive. Then through the 8-[place] Hemaquet, a Cordis Catalan F curve 8 mm mapping radiofrequency ablation catheter was advanced. Using Matchbook endocardial solution mapping system a three-dimensional configuration of the right atrium was obtained. Then the catheter was at the critical isthmus. Radiofrequency energy was delivered. During ablation cycle length prolonged and subsequently the patient converted into sinus rhythm. Further burn was delivered in the area. Then pacing lateral to the line showed activation of the His compared to the CS that indicated bilateral line of block. Then atrial pacing protocol was performed at the coronary sinus. I did pace up 220 milliseconds. No tachyarrhythmia was induced. Then ventricular pacing protocol was performed. No tachycardia was induced. Then Isuprel was infused at 10 brandee, no tachyarrhythmia was induced. At that point the procedure was complete. All catheters were removed. The patient tolerated the procedure. Blood loss was minimal. 1. Electrocardiogram. At baseline the patient was in atrial flutter. Postprocedure the patient was in sinus rhythm. 2. Basic interval. Base cycle length was around 610 milliseconds, post ablation it was around 980. AH was 90 and HV was around 52 milliseconds. 3. Atrial pacing protocol. Atrial flutter was mapped and treated and ablated. Post ablation tachyarrhythmia was not induced. 4. Ventricular pacing protocol. No tachyarrhythmia was induced. 5. Tachyarrhythmia. Atrial flutter was mapped and treated and ablated. Ablation was successful. CONCLUSION Successful electrophysiology study, mapping, radiofrequency ablation of atrial flutter. COMMENT AND RECOMMENDATION The patient is going to be transferred to the telemetry unit. Will be observed and when stable will be discharged home. MD SID Peter/GRAHAM /12:01 PM /12:25 PM
[2016-07-26] MEDS ORDERED: BACITRACIN OINT 0.9 GM PKT TOP ONE (13:00)
--- NOTE | 2016-07-26 15:57 | EKG ---
Date Performed: 07/26/2016 Time Performed: 11:48:12 PTAGE: 75 years EKG: Sinus rhythm with PVC(s) with 1st degree A-V block. Possible left atrial abnormality Left axis deviation Cannot r ule out anterior infarct - age undetermined Left ventricular hypertrophy Nonspecific T wave changes A bnormal ECG COMPARED TO PRIOR ELECTROCARDIOGRAM, Sinus rhythm has replaced atrial flutter. PREVIOUS TRACING : 07/26/2016 07.57 DOCTOR: Jersey Marquez Interpretating Date/Time 07/26/2016 15:57:01
--- NOTE | 2016-07-26 16:05 | EKG ---
Date Performed: 07/26/2016 Time Performed: 07:57:06 PTAGE: 75 years EKG: Atrial flutter with slow ventricular response with 4:1 A-V block. Left axis deviation IV co nduction defect Possible anteroseptal infarct - age undetermined Inferior/lateral ST-T changes are no nspecific Abnormal ECG COMPARED TO PRIOR ELECTROCARDIOGRAM, Rate has slowed. PREVIOUS TRACING : 06/28/2016 05.01 DOCTOR: Jersey Marquez Interpretating Date/Time 07/26/2016 16:03:38
[2016-07-27] VITALS (11 sets, daily range): BP systolic 113–138; BP diastolic 69–70; PULSE 64–78; RESP 16–18; TEMP 98.1–98.4; O2SAT 91–96
[2016-07-27 06:19] LABS: APTT (PATIENT) 26.1 SEC (24.3-30.1); PROTHROMBIN TIME - PATIENT 11.2 SEC (9.8-11.6)
--- NOTE | 2016-07-27 06:57 | EKG ---
Date Performed: 07/26/2016 Time Performed: 16:38:28 PTAGE: 75 years EKG: Sinus rhythm with 1st degree A-V block. Left anterior fascicular block Possible anteroseptal infarct - age undete rmined Possible left ventricular hypertrophy Nonspecific ST-T wave changes Abnormal ECG COMPARED TO P RIOR ELECTROCARDIOGRAM, Premature ventricular contractions are no longer seen. PREVIOUS TRACING : 07/26/2016 11.48 DOCTOR: Jersey Marquez Interpretating Date/Time 07/27/2016 06:56:05
--- NOTE | 2016-07-27 07:00 | EKG ---
Date Performed: 07/27/2016 Time Performed: 04:51:08 PTAGE: 75 years EKG: Sinus rhythm with 1st degree A-V block. Left anterior fascicular block Possible anteroseptal infarct - age undete rmined Possible left ventricular hypertrophy Nonspecific ST-T wave changes Abnormal ECG NO SIGNIFICAN T CHANGE FROM PRIOR ELECTROCARDIOGRAM. PREVIOUS TRACING : 07/26/2016 16.38 DOCTOR: Jersey Marquez Interpretating Date/Time 07/27/2016 06:59:12
--- NOTE | 2016-07-27 08:29 | PD.CARD.PN ---
Subjective Subjective Remarks Feels ok, NSR on tele. Objective Medications Current Medications Medications (Trade) Dose Ordered Sig/Trisha Route Start Time Stop Time Status Last Admin Sodium Chloride 500 ml @ 30 mls/hr [id number] IV 07/26/16 07:15 Lactated Ringer's 1,000 ml @ 30 mls/hr Q24H PRN IV 07/26/16 07:15 07/29/16 07:14 (NS 500 ml Inj) 500 ml @ 30 mls/hr [id number] PRN IV 07/26/16 07:15 07/29/16 07:14 Miscellaneous Information ALL NURSING DEPARTME... UNSCH PRN .XX 07/26/16 12:00 07/27/16 11:59 (Percocet 5-325 Mg) 1 tab Q4H PRN PO 07/26/16 12:00 (Percocet 5-325 Mg) 2 tab Q4H PRN PO 07/26/16 12:00 (Ativan Inj) 0.5 mg UNSCH PRN IV 07/26/16 12:00 07/27/16 11:59 (Atropine Inj) 0.5 mg UNSCH PRN IV 07/26/16 12:00 (Reglan Inj) 10 mg Q4H PRN IV 07/26/16 12:00 (Zofran Inj) 4 mg Q4H PRN IV 07/26/16 12:00 (Xylocaine 1% Inj (50 ml)) 10 ml UNSCH PRN INFIL 07/26/16 12:00 07/27/16 11:59 Vital Signs / I&O Vital Signs Date Time Temp Pulse Resp B/P Pulse Ox O2 Delivery O2 Flow Rate FiO2 07/27/16 06:00 68 07/27/16 05:00 70 07/27/16 04:00 68 07/27/16 03:00 98.1 71 18 138/70 96 07/27/16 03:00 70 07/27/16 02:00 64 07/27/16 01:00 66 07/27/16 00:00 64 07/26/16 23:00 98.1 68 16 140/68 96 07/26/16 23:00 76 07/26/16 22:00 64 07/26/16 21:00 64 07/26/16 20:00 66 07/26/16 19:00 98.4 69 18 141/77 96 07/26/16 19:00 76 07/26/16 18:00 64 07/26/16 17:00 67 07/26/16 16:00 69 07/26/16 15:00 97.8 75 18 140/80 97 07/26/16 14:30 97.8 75 18 140/80 97 07/26/16 14:15 97 Room Air I/O 07/26/16 07/26/16 07/26/16 07/27/16 07/27/16 07/27/16 07:00 15:00 23:00 07:00 15:00 23:00 Intake Total 660 ml 240 ml Output Total 200 ml 275 ml Balance 460 ml -35 ml Intake Oral 660 ml 240 ml Output Urine Total 200 ml 275 ml # Bowel Movements 1 Physical Exam GENERAL: Well-nourished, well-developed patient. SKIN: Warm and dry. Groin sites soft with no swelling or bruising. HEAD: Normocephalic. EYES: No scleral icterus. No injection or drainage. NECK: Supple, trachea midline. No JVD or lymphadenopathy. CARDIOVASCULAR: Regular rate and rhythm without murmurs, gallops, or rubs. RESPIRATORY: Breath sounds equal bilaterally. No accessory muscle use. GASTROINTESTINAL: Abdomen soft, non-tender, nondistended. EXTREMITIES: No cyanosis, or edema. NEUROLOGICAL: Awake, alert, and oriented x 3. Non-focal. Laboratory Laboratory Tests Test 07/27/16 05:43 Prothrombin Time 11.2 SEC Prothromb Time International 1.0 RATIO Ratio Activated Partial 26.1 SEC Thromboplast Time Assessment and Plan Problem List: (1) Atrial flutter Assessment and Plan: Stable for DC home, continue Eliquis, f/u with Dr. Urban in 3 weeks per my d/w him. Problem Qualifiers (1) Atrial flutter: Qualified Code: I48.3 - Typical atrial flutter Melvina Rodriguez Jul 27, 2016 08:29
== END 2016-07-27 10:46 | disposition home or self-care (01) ==
LOC: HDOC 06:45 → HDIC 06:46 → HCIS 14:23 → HDOC 07-27 10:46
PROVIDERS: ATTEND Internal Medicine Interventional Cardiology
DX: I48.3 Typical atrial flutter (principal); I10 Essential (primary) hypertension; J44.9 Chronic obstructive pulmonary disease, unspecified; Z79.01 Long term (current) use of anticoagulants; Z95.5 Presence of coronary angioplasty implant and graft
CPT/HCPCS: 00537; 80048; 85025; 85610; 85730; 86850; 86900; 86901; 93005; 93613; 93623; 93653; C1730; C1732; C2630; J2250; J3010